=== PATIENT | male | born 1955 | race Caucasian/White ===

== ENCOUNTER → 2022-01-24 08:24 | Outpatient (BNVA) | payer MEDICARE, MEDICAID, SELFPAY | PROVIDERS: PCP Internal Medicine Geriatric Medicine; Referring Provider Internal Medicine Geriatric Medicine; Visit Provider Internal Medicine | DX: R07.89 Other chest pain (principal); I10 Essential (primary) hypertension; I51.7 Cardiomegaly; E78.00 Pure hypercholesterolemia, unspecified | CPT/HCPCS: 93005; 99202 ==

== ENCOUNTER → 2022-02-21 08:04 | Outpatient (REF) | payer MEDICARE, SELFPAY ==
--- NOTE | 2022-02-21 08:09 | CA_ITS ---
Acquisition Time: 2022-02-21 10:31:16 Total Exercise Time: 00:05:01 Test Indications: CP Medications: SEE CHART Protocol: ROMARIO Max HR: 134 BPM 85% of Pred: 156 BPM Max BP: 220/118 mmHG Max Work Load: 7.0 METS Exercise stress test with exercise 5 min 1 sec of Romario protocol, achieving 85% MPHR, without anginal symptoms, with isolated PACs and PVCs, with hypertensive response to exercise with max BP 220/118, with nondiagnostic EKG for ischemia due to baseline ST/ T wave abniormalities. In recovery BP gradual came down to 148/ 94, asymptomatic . He took his Amlodipine this am. Test reviewed with Dr Becerra Referred By: Jaskaran Mitchell Overread By: HAMZAH BERNABE
--- NOTE | 2022-02-21 08:09 | CA_ITS ---
Transthoracic Echocardiogram Patient (Last, First, Middle): Angel Villela, Gender: Male Date of : 1955 Age: 66 Procedure Date: 02/21/2022 Procedure Type: Transthoracic Echocardiogram Location: OP Height: 187.96 cm Weight: 78.02 kg BSA: 2.04 m2 Heart Rate: bpm BP: 180 / 90 mmHg Superintendent Division: TO Referring MD: Jaskaran Mitchell MD Clinical Research Technician: Ryley Becerra MD Symptoms: I51.7 - Cardiomegaly Study Quality: Fair ECG Rhythm: Sinus Conclusions: - 1. Mildly dilated left ventricle with [id number] LV systolic dysfunction with LVEF of 40-45% with impaired relaxation filling pattern 2. Mildly dilated left atrium 3. Mild aortic regurgitation 4. Mildly dilated ascending aorta 3.9 cm 5. Normal RV systolic pressure 6. No pericardial effusion Findings Left Ventricle Mildly increased left ventricular cavity size. There is normal left ventricular wall thickness. The left ventricular systolic function is mild to moderately decreased. The visually estimated ejection fraction is between 40-45%. Spectral Doppler is indicative of an impaired relaxation filling pattern. E/E prime ratio is between 8 and 15 consistent with indeterminate filling pressures. Right Ventricle Normal right ventricular cavity size and systolic function. Atria The left atrium is mildly dilated. There is no evidence of interatrial shunt. The right atrium is normal in size. Aortic Valve There is mild thickening of the aortic valve. There is no aortic valve stenosis. There is mild aortic valve regurgitation. Mitral Valve There is mild anterior mitral leaflet thickening. There is trace mitral valve regurgitation. There is no mitral valve stenosis. Pulmonic Valve The pulmonic valve is likely normal. Tricuspid Valve Normal tricuspid valve structure. There is trace tricuspid valve regurgitation. The right ventricular systolic pressure is normal. The right ventricular systolic pressure is 20 mmHg. Normal right atrial pressure. There is no evidence of pulmonary hypertension. Great Vessels The pulmonary artery was not well visualized. There is mild dilatation of the ascending aorta measuring 3.90 cm. Venous The inferior vena cava is normal in size and collapses greater than 50% with inspiration. Pericardium/Pleural There is no evidence of pericardial effusion. Prior Study Comparison No prior study available for comparison. Measurements 2D Linear Measurements IVSd: 1.18 0.6-0.9/0.6-1.0 cm LVIDd: 5.98 3.9-5.3/4.2-5.9 cm LVIDd Index: 2.93 2.4-3.2/2.2-3.1 cm/m2 LVIDs: 4.60 2.0-3.6 cm LVPWd: 1.00 0.7-1.1 cm LA Diam: 3.80 2.7-3.8/3.0-4.0 cm LAIDs Index: 1.86 1.5-2.3 cm/m2 LV Mass: 342.67 67-162/88-224 g LV Mass Index: 167.98 43-95/49-115 g/m2 LVOT Diam: 2.00 3.0+(-)1.3 cm 2D Systolic Function EF 4C: 41.70 >55% EF 2C: 45.10 >55% EF BiP: 43.20 >55% Mitral Valve MV Pk E: 0.55 MV PK A: 0.65 MV Decel Time: 250.00 E/A: 0.80 E'Lateral: 3.81 E'Medial: 5.33 E/E' Med: 10.30 E/E' Lat: 14.40 PHT: 73.00 MVA PHT: 3.01 Decel [place]: 2.19 Aortic Valve AoV Pk Dell: 1.87 AoV Mn Dell: 1.26 AoV VTI: 0.39 AoV Pk Grad: 14.00 Aov Mn Grad: 7.00 THANH Cont.VTI: 1.52 LVOT LVOT Pk Dell: 0.77 LVOT Mn Dell: 0.55 LVOT VTI: 0.19 LVOT Pk Grad: 2.00 LVOT Mn Grad: 1.00 LVOT Diam: 2.00 LVOT Area: 3.14 Diastolic Function MV Pk E: 0.55 MV Pk A: 0.65 E/A: 0.80 E'Medial: 5.33 E/E' Med: 10.30 E' Laterial: 3.81 E/E' Lat: 14.40 Right Ventricle TAPSE (mm): 22.20 TVS' Dell: 9.90 Tricuspid Valve TR Pk Dell: 2.08 TR Pk Grad: 17.00 RA Press: 3.00 RVSP: 20.00 Great Vessels Aorta Sinus of Valsalva: 3.22 2.0-3.5 cm Ao Asc: 3.90 2.1-3.4 cm Updated in Other Vendor System with Status of Final Ryley Becerra MD electronically signed on 02/23/2022 1:05:14 PM with status of Final
== END ==
LOC: HO.CARD 08:04
PROVIDERS: PCP Internal Medicine Geriatric Medicine; Visit Provider Internal Medicine
DX: R07.2 Precordial pain (principal); I51.7 Cardiomegaly
CPT/HCPCS: 93017; 93306

== ENCOUNTER → 2022-04-11 13:25 | Outpatient (BNVA) | payer MEDICARE, MEDICAID, SELFPAY | PROVIDERS: PCP Internal Medicine Geriatric Medicine; Referring Provider Internal Medicine Geriatric Medicine; Visit Provider Nurse Practitioner Family | DX: R07.2 Precordial pain (principal); I10 Essential (primary) hypertension; I42.9 Cardiomyopathy, unspecified; I51.7 Cardiomegaly; Z79.899 Other long term (current) drug therapy | CPT/HCPCS: 99212 ==

== ENCOUNTER 2022-04-20 09:45 | Outpatient (REF) | payer MEDICARE, SELFPAY ==
[2022-04-20 11:10] LABS: Anion Gap 13 (12-20); Blood Urea Nitrogen 10 mg/dL (9-16); Calcium 9.4 mg/dL (8.4-10.2); Carbon Dioxide 24 mmol/L (22-29); Chloride 107 mmol/L (96-108); Estimated Glomerular Filt Rate > 60; Glucose Random 103 mg/dL (60-115); Potassium 4.1 mmol/L (3.3-5.1); Sodium 140 mmol/L (135-145)
== END 2022-04-20 09:46 | disposition home or self-care (01) ==
LOC: HO.LAB 09:45
PROVIDERS: PCP Internal Medicine Geriatric Medicine; Visit Provider Nurse Practitioner Family
DX: I42.9 Cardiomyopathy, unspecified (principal)
CPT/HCPCS: 36415; 80048

== ENCOUNTER → 2022-05-01 08:10 | Outpatient (REF) | payer MEDICARE, MEDICAID, SELFPAY ==
--- NOTE | ~2022-05-01 | NM_ITS ---
Exercise Myocardial perfusion study Indication: Cardiomyopathy to evaluate for myocardial ischemia Technique: The patient was brought in for an exercise perfusion study on 05/01/2022. Patient performed exercise as per Juan C protocol and was injected 30 mCi of sestamibi was given intravenously one target HR was achieved. Images were obtained using the SPECT gamma camera interlaced with the gating device. Images were obtained in supine position. Resting perfusion study was performed on 05/02/2022. Patient was administered 30 mCi of sestamibi intravenously at rest. Images were then obtained in supine position. Images obtained with and without CT attenuation. Total DLP 101 mGy-cm. Images were processed with the software and compared side to side in short axis, horizontal long axis and vertical long axis views. Findings: The stress perfusion study showed non attenuated images show moderate to severely reduced uptake in the inferior wall of the LV myocardium. Remainder of the LV myocardium shows normally perfused uptake. Attenuation corrected images was somewhat suboptimal due to poor. Wall in the subdiaphragmatic uptake with moderately reduced uptake in the inferior wall.. The gated study shows reduced LV systolic function with calculated LVEF of 31%. LV cavity is mildly to moderately in size. The gated study shows diffusely reduced wall thickening and contraction of all segments. There is no transient ischemic dilation. Resting study shows nontender images show moderately to severely reduced uptake in the inferior wall of the LV myocardium. Remainder of the LV myocardium normally perfused. Attenuation corrected images are suboptimal with subdiaphragmatic uptake sparing inferior wall uptake at the apex of the uptake.. Gating at rest reveals diffuse wall motion with ejection fraction at 34%. The findings are consistent with suboptimal stress perfusion study and inferior wall ischemia cannot be entirely ruled out. NM/NM cardiolite stress test Impression: 1. Possible inferior wall ischemia 2. Gated LVEF is 31% with stress and 34% with rest 3. Transient ischemic dilatation not present but LV cavity is dilated Stress EKG is nondiagnostic for ischemia
--- NOTE | 2022-05-01 08:18 | CA_ITS ---
Acquisition Time: 2022-05-01 08:31:21 Total Exercise Time: 00:05:31 Test Indications: CP, CARDIOMYOPATHY Medications: SEE CHART Protocol: ROMARIO Max HR: 134 BPM 85% of Pred: 156 BPM Max BP: 200/108 mmHG Max Work Load: 7.0 METS Exercise stress test with exercise 5 min 31 sec of Romario protocol, achieving 85% MPHR, with moderate sob, no chest discomfort, with frequent PACs, with hypertensive response to exercise with max BP 200/108, with nondiagnostic EKG for ischemia due to baseline ST/T abnormality. In recovery his breathing quickly improved and BP improved to 156/84. Nuclear images pending. Test reviewed with Dr Mitchell Referred By: Jaclyn Slater Overread By: JACLYN SLATER
== END ==
LOC: HO.CARD 08:10
PROVIDERS: PCP Internal Medicine Geriatric Medicine; Visit Provider Nurse Practitioner Family
DX: I42.9 Cardiomyopathy, unspecified (principal); I51.7 Cardiomegaly
CPT/HCPCS: 78452; 93017; A9500

== ENCOUNTER → 2022-05-08 14:43 | Outpatient (BNVA) | payer MEDICARE, MEDICAID, SELFPAY | PROVIDERS: PCP Internal Medicine Geriatric Medicine; Referring Provider Internal Medicine Geriatric Medicine; Visit Provider Nurse Practitioner Family | DX: R07.2 Precordial pain (principal); I10 Essential (primary) hypertension; I42.9 Cardiomyopathy, unspecified; I51.7 Cardiomegaly; Z79.899 Other long term (current) drug therapy | CPT/HCPCS: 99212 ==

== ENCOUNTER 2022-06-04 09:38 | Outpatient (REF) | payer MEDICARE, SELFPAY ==
[2022-06-04 10:59] LABS: Anion Gap 11 (12-20); Blood Urea Nitrogen 12 mg/dL (9-16); Calcium 9.4 mg/dL (8.4-10.2); Carbon Dioxide 26 mmol/L (22-29); Chloride 107 mmol/L (96-108); Estimated Glomerular Filt Rate > 60; Glucose Random 106 mg/dL (60-115); Potassium 4.2 mmol/L (3.3-5.1); Sodium 140 mmol/L (135-145)
== END 2022-06-04 09:39 | disposition home or self-care (01) ==
LOC: HO.LAB 09:38
PROVIDERS: PCP Internal Medicine Geriatric Medicine; Visit Provider Nurse Practitioner Family
DX: I42.9 Cardiomyopathy, unspecified (principal); R94.39 Abnormal result of other cardiovascular function study; R07.2 Precordial pain
CPT/HCPCS: 36415; 80048

== ENCOUNTER 2022-10-24 12:13 | Outpatient (AMB) | payer MEDICARE, MEDICAID, SELFPAY ==
--- NOTE | 2022-10-24 12:32 | MHC.OFFVIS ---
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 In the past, was seen regarding chest pain. Subsequently, underwent noninvasive workup including echocardiogram, stress test as well as coronary CTA. Overall, he states he is feeling great. No further chest pains or in fact any cardiac symptoms whatsoever. Blood pressure runs high today but he is in denial that this is a problem. Continues to state that he is feeling fine and blood pressure issues not a true issue. [facility] Medical History Anxiety Elevated PSA Essential hypertension High cholesterol Surgical History History of lung surgery Family History Brother Diabetes Social History Alcohol intake: current Alcohol intake frequency: a few times a week Alcohol type: beer Patient Tobacco Use Status: Never used Tobacco Substance Use Type: Marijuana Review of Systems Const Denies weakness ENT Denies dizziness Card Denies chest pain, Denies chest pain with activity, Denies syncope, Denies rapid heart rate, Denies pedal edema, Denies edema, Denies leg edema, Denies lightheadedness, Denies palpitations, Denies dyspnea, Denies dyspnea on exertion and Denies orthopnea Resp Denies cough, Denies dyspnea and Denies dyspnea on exertion GI Denies hematochezia and Denies change in stool character Musc Denies abnormal gait, Denies muscle cramps, Denies muscle weakness, Denies numbness, Denies radiating pain into limb and Denies tingling Neuro Denies abnormal gait, Denies dizziness, Denies syncope, Denies numbness, Denies tingling and Denies weakness Endo Denies palpitations Physical Exam Vital Signs: Last Vital Signs Pulse 63 10/24/22 12:35 BP 170/90 H 10/24/22 12:35 BMI result Body Mass Index 22.2 Const General: comfortable and no acute distress Orientation/consciousness: patient oriented x3 HEENT Other: Unremarkable Head: Yes normal to inspection Neck Neck: Yes normal visual inspection Chest Chest palpation & inspection: normal inspection of the chest Resp Auscultation: clear to auscultation bilaterally Cardio Palpation: normal PMI Heart sounds: S1 normal heart sound present, S2 normal heart sound present, no gallops, no murmurs and no rubs GI Palpation (GI): Soft to palpation Back/Spine/Pelvis Other: unremarkable Skin General skin exam: no rashes or lesions noted Neuro General: patient oriented x3 Extrem General: Yes normal to inspection Psych Mental Status: mental status grossly normal Assessment & Plan Assessment & Plan (1) Precordial chest pain: Code(s): R07.2 - Precordial pain Plan: No significant coronary disease on CTA. Could be related to episodes of high blood pressure. Any case, he has not had any further pain a while. (2) Essential hypertension: Code(s): I10 - Essential (primary) hypertension Plan: Blood pressure is high today as well as prior readings. However, he is not willing to accept that this is a problem. Continues to state that it is only because of coming to doctor's. However, he does not seem to check home blood pressures either to actually proved that it goes down. He was on medications in the past but taking absolutely nothing now. Spent a lot of time convincing him that he should take medicines and we can restart the amlodipine. New script is being sent. (3) Cardiomyopathy: Code(s): I42.9 - Cardiomyopathy, unspecified Plan: Echocardiogram with mildly increased size and LVEF is 40-45%. This could all be from hypertensive cardiomyopathy. Control blood pressure will certainly help as long as patient is willing to accepted. However, as above, he is still in denial. (4) Ascending aortic aneurysm: Code(s): I71.21 - Aneurysm of the ascending aorta, without rupture Plan: Ascending aortic size is 4.2 cm on the CTA. Will need to be followed periodically. Blood pressure management as above. Plan Tried to educate patient about high blood pressure as well as importance of treatment and consequences from lack of control. Medications: New amlodipine 10 mg PO DAILY 90 tabs 3RF Coding Level of Care Code Est Pt Level 4 (06810) Diagnoses Precordial chest pain R07.2 Essential hypertension I10 Cardiomyopathy I42.9 Ascending aortic aneurysm I71.21
[2022-10-24 12:35] VITALS: BP 170/90; PULSE 63; BMI 22.2
== END 2022-10-24 12:47 | disposition home or self-care (01) ==
PROVIDERS: PCP Internal Medicine Geriatric Medicine; Referring Provider Internal Medicine Geriatric Medicine; Visit Provider Internal Medicine
DX: R07.2 Precordial pain (principal); I10 Essential (primary) hypertension; I42.9 Cardiomyopathy, unspecified; I71.21 Aneurysm of the ascending aorta, without rupture
CPT/HCPCS: 99214

== ENCOUNTER → 2022-10-24 12:13 | Outpatient (BNVA) | payer MEDICARE, SELFPAY | PROVIDERS: PCP Internal Medicine Geriatric Medicine; Referring Provider Internal Medicine Geriatric Medicine; Visit Provider Internal Medicine | DX: R07.2 Precordial pain (principal); I10 Essential (primary) hypertension; I42.9 Cardiomyopathy, unspecified; I71.21 Aneurysm of the ascending aorta, without rupture; E78.00 Pure hypercholesterolemia, unspecified | CPT/HCPCS: 99212 ==

== ENCOUNTER 2023-01-15 10:06 | Outpatient (REF) | payer MEDICARE, MEDICAID, SELFPAY ==
[2023-01-15 11:19] LABS: MANUAL DIFF FLAG NO
[2023-01-15 11:26] LABS: Basophils Percent Auto 0.9 % (0-2); Eosinophils Absolute Auto 0.1 X10*3/uL (0.0-0.4); Eosinophils Percent Auto 2.4 % (0-4); Hematocrit 53.6 % (42.0-52.0); Hemoglobin 17.8 g/dl (14.0-18.0); Imm Gran Abs Auto 0.01 X10*3/uL (0.00-0.03); Imm Gran Pct Auto 0.3 % (0.0-0.4); Lymphocytes Percent Auto 30.7 % (20-40); Mean Corpuscular HGB Conc 33.2 g/dl (31.0-36.0); Mean Corpuscular Volume 87.3 fL (80.0-98.0); Mean Platelet Volume 11.9 fL (9.4-12.4); Monocytes Absolute Auto 0.3 X10*3/uL (0.1-1.2); Monocytes Percent Auto 9.1 % (2-11); Neutrophils Absolute Auto 1.9 x10*3/uL (2.0-8.3); Neutrophils Percent Auto 56.6 % (45-73); Platelet Count 231 X10*3/uL (160-400); Red Blood Count 6.14 X10*6/uL (4.60-5.80); Red Cell Distribution Width 12.9 % (11.0-16.0); White Blood Count 3.4 X10*3/uL (4.8-10.8)
[2023-01-15 11:38] LABS: Alanine Aminotransferase 29 U/L (0-40); Albumin Level 4.4 g/dL (3.5-5.0); Alkaline Phosphatase 74 U/L (39-117); Anion Gap 12 (12-20); Aspartate Amino Transferase 32 U/L (5-37); Bilirubin Total 0.5 mg/dL (0.0-1.0); Blood Urea Nitrogen 15 mg/dL (9-16); Carbon Dioxide 24 mmol/L (22-29); Chloride 106 mmol/L (96-108); Cholesterol 253 mg/dL (<200); Estimated Glomerular Filt Rate > 60; Glucose Random 114 mg/dL (60-115); HDL Cholesterol 66 mg/dL (>40); LDL Cholesterol Calculated 159 mg/dL (<100); Potassium 3.7 mmol/L (3.3-5.1); Sodium 138 mmol/L (135-145); Total Protein 8.2 g/dL (6.5-8.0); Triglycerides 144 mg/dL (<150)
[2023-01-15 11:51] LABS: Prostate Specific Antigen 6.93 ng/mL (<0.05-4.0)
== END 2023-01-15 10:07 | disposition home or self-care (01) ==
LOC: HO.HHCL 10:06
PROVIDERS: Visit Provider Internal Medicine Geriatric Medicine
DX: I10 Essential (primary) hypertension (principal); R97.20 Elevated prostate specific antigen [PSA]; E78.00 Pure hypercholesterolemia, unspecified; M21.611 Bunion of right foot; Z28.20 Immunization not carried out because of patient decision for unspecified reason; Z12.5 Encounter for screening for malignant neoplasm of prostate
CPT/HCPCS: 36415; 80053; 80061; 84153; 85025

== ENCOUNTER 2023-03-22 10:10 | Outpatient (AMB) | payer MEDICARE, MEDICAID, SELFPAY ==
--- NOTE | 2023-03-22 10:13 | A.OFFVIS_ITS ---
Intake Intake Visit Reasons: New PT Elevated PSA 6.93 ng/dL 01/15/2023 Intake Note: NEW Patient presents today to established treatment for Elevated PSA: Prostate Specific Ag 6.93 ng/dL 01/15/2023: Meds- None Allergies to Antibiotic- No Known Allergies Blood Thinner- None Post Void Residual: 27 mL Pension Consultant Required: No Accompanied by: Self / Same As Patient Allergies No Known Allergies [No Known Allergies*] Allergy (Verified 04/29/23 13:18) Medication List - Last Reconciled 03/22/23 by Juan Carlos Mcgregor MD amlodipine 10 mg PO DAILY carvedilol 3.125 mg PO BID HPI HPI Comments History of Present Illness Details Angel who is here for evaluation for elevated PSA. The patient denies family history of prostate cancer. Denies history of nicotine use. I have discussed that elevated PSA may indicate changes in the prostate including benign enlargement, cancer and an inflammatory condition. I have discussed doing a biopsy has risks and that management in early detection of prostate cancer may include active surveillance. Evaluation: Urinalysis-leukocytes negative, blood negative; Post Void Residual: 27 mL Prostate Exam: Patient declined exam today. Plan: Discussed repeat PSA. If remains elevated discussed plan for prostate biopsy. Ultrasound retroperitoneum, evaluate size of prostate by ultrasound [facility] Medical History Anxiety High cholesterol Elevated PSA Essential hypertension Surgical History History of lung surgery Family History Brother Diabetes Social History Alcohol intake: current Alcohol intake frequency: a few times a week Alcohol type: beer Patient Tobacco Use Status: Never used Tobacco Substance Use Type: Marijuana Review of Systems Const All systems reviewed & are unremarkable except as noted in HPI and below Reports no additional complaints Eyes Reports no additional complaints ENT Reports no additional complaints Card Denies dyspnea Resp Denies cough and Denies dyspnea GI Reports no additional complaints Musc Reports no additional complaints Skin/Breast Denies rash and Denies unusual bruising Neuro Reports no additional complaints Psych Reports no additional complaints Endo Reports no additional complaints Jerel/Lymph Reports no additional complaints Aller/Immun Reports no additional complaints Physical Exam Const General: healthy appearing, no acute distress and well developed Orientation/consciousness: patient oriented x3 HEENT Head: Yes normocephalic and Yes atraumatic Eyes Conjunctivae: conjunctivae normal Neck Neck: Yes normal visual inspection Chest Chest palpation & inspection: normal inspection of the chest Resp Effort & Inspection: normal respiratory effort Cardio Rate: regular rate GI Inspection: Yes normal to inspection Palpation (GI): Soft to palpation Other: Prostate Exam: Patient declined exam today. Skin General skin exam: no rashes or lesions noted Neuro General: patient oriented x3 Extrem General: No pedal edema Psych Appearance: grossly normal Affect: normal affect Office Procedures Post Void Residual Post Residual Void Post Void Residual (PVR): 27 [id number] Void Residual by ultrasound Results AMB Urinalysis, Automated UA Leukoctes 0 Demario/uL Last Edit by TERRY Keen on 03/22/23 10:37 UA Nitrite Negative Last Edit by TERRY Keen on 03/22/23 10:37 UA Urobilinogen 0.2 mg/dL Last Edit by TERRY Keen on 03/22/23 10:3 7 UA Protein 0 mg/dL Last Edit by TERRY Keen on 03/22/23 10:37 UA pH 6.0 Last Edit by TERRY Keen on 03/22/23 10:37 UA Blood 0 Steve/uL Last Edit by TERRY Keen on 03/22/23 10:37 UA Specific [place] 1.005 Last Edit by TERRY Keen on 03/22/23 10: 37 UA Ketone Negative Last Edit by TERRY Keen on 03/22/23 10:37 UA Bilirubin 0 mg/dL Last Edit by TERRY Keen on 03/22/23 10:37 UA Glucose 0 mg/dL Last Edit by TERRY Keen on 03/22/23 10:37 Results Reviewed Results Reviewed: Laboratory Last Values Urine pH (Auto) 6.0 03/22/23 10:36 Specific [place] (Auto) 1.005 03/22/23 10:36 Urine Protein (Auto) 0 mg/dL 03/22/23 10:36 Glucose (UA)(Auto) 0 mg/dL 03/22/23 10:36 Urine Ketones (Auto) Negative 03/22/23 10:36 Urine Blood (Auto) 0 Steve/uL 03/22/23 10:36 Urine Nitrite (Auto) Negative 03/22/23 10:36 Urine Bilirubin (Auto) 0 mg/dL 03/22/23 10:36 Urine Urobilinogen (Auto) 0.2 mg/dL 03/22/23 10:36 Leukocyte Esterase (Auto) 0 Demario/uL 03/22/23 10:36 Assessment & Plan Assessment & Plan (1) BPH with elevated PSA: Code(s): N40.0 - Benign prostatic hyperplasia without lower urinary tract symptoms; R97.20 - Elevated prostate specific antigen [PSA] (2) Elevated PSA: Code(s): R97.20 - Elevated prostate specific antigen [PSA] Plan Ultrasound retroperitoneal Repeat PSA Orders: Orders AMB Post Void Residual by ultrasound 03/22/23 N39.8 - Other specified disorders of urinary system US retroperitoneal comp 03/22/23 N40.0 - Benign prostatic hyperplasia without lower urinary tract symptoms, R97.20 - Elevated prostate specific antigen [PSA] AMB Urinalysis Automated 03/22/23 Z13.9 - Encounter for screening, unspecified PSA,Total (Free>4and<10) 03/26/23 R97.20 - Elevated prostate specific antigen [PSA] Patient Instructions: The patient had an opportunity to ask questions regarding treatment plan. All questions were answered. Laboratory studies and physical exam results were discussed and reviewed in detail. No major barriers to understanding were identified. The patient expressed understanding and agreement with the above treatment plan. The patient is aware they should contact our office by phone for worsening of their current condition or the appearance of new symptoms. Compliance is encouraged with any medications and followup testing that is ordered. It is a privilege to be allowed the opportunity to participate in the urologic care of your patient. If you have any questions or concerns regarding treatment for the above conditions please do not hesitate to contact me. The office telephone contact is [phone]. This note is constructed in part using voice recognition software. While every effort has been made to ensure accuracy manager manufacturing errors may have been included. Yours sincerely, Juan Carlos Mcgregor MD Coding Level of Care Code New Pt Level 4 (36536) Diagnoses BPH with elevated PSA N40.0; R97.20 Elevated PSA R97.20 CPT Codes Post Residual Void - PVR CPT Code: 96495-[id number] Void Residual by ultrasound ([id number])
== END 2023-03-22 11:02 | disposition home or self-care (01) ==
PROVIDERS: PCP Internal Medicine Geriatric Medicine; Visit Provider Urology
DX: N40.0 Benign prostatic hyperplasia without lower urinary tract symptoms (principal); R97.20 Elevated prostate specific antigen [PSA]
CPT/HCPCS: 99204

== ENCOUNTER → 2023-03-22 10:10 | Outpatient (BNVA) | payer MEDICARE, MEDICAID, SELFPAY | PROVIDERS: PCP Internal Medicine Geriatric Medicine; Visit Provider Urology | DX: R97.20 Elevated prostate specific antigen [PSA] (principal); N40.0 Benign prostatic hyperplasia without lower urinary tract symptoms | CPT/HCPCS: 51798; 81003; 99202 ==

== ENCOUNTER 2023-03-26 08:36 | Outpatient (REF) | payer MEDICARE, SELFPAY ==
[2023-03-26 09:52] LABS: PSA,Total (Free>4and<10) 6.03 ng/mL (0.00-4.00)
[2023-03-28 11:23] LABS: Percent Free Prostate Spec Ag 16 % (calc) (>25); Prostate Specific Ag Total 6.1 ng/mL (< OR = 4.0)
== END 2023-03-26 08:37 | disposition home or self-care (01) ==
LOC: HO.LAB 08:36
PROVIDERS: PCP Internal Medicine Geriatric Medicine; Visit Provider Urology
DX: R97.20 Elevated prostate specific antigen [PSA] (principal); Z12.5 Encounter for screening for malignant neoplasm of prostate
CPT/HCPCS: 36415; 84153; 84154

== ENCOUNTER 2023-04-29 13:05 | Outpatient (AMB) | payer MEDICARE, SELFPAY ==
[2023-04-29 13:14] VITALS: BP 190/76; PULSE 77; BMI 21.7
--- NOTE | 2023-04-29 13:14 | MHC.OFFVIS ---
Intake Vital Signs 04/29/23 13:14 Height 6 ft 2 in Weight 169 lb 5.04 oz BMI 21.7 BP 190/76 H Blood Pressure Location Lt brachial Position Sitting Pulse 77 Pulse Source Monitor Intake Visit Reasons: r/s 6 mos f/u Etl [employer] Developer Required: No Allergies No Known Allergies [No Known Allergies*] Allergy (Verified 04/29/23 13:18) HPI r/s 6 mos f/u HPI Details Angel is a 67-year-old male with past medical history of hypertension, hyperlipidemia, cardiomyopathy, LVH, ascending aorta aneurysm, who presents for follow-up. Today he reports that he has not been taking his medications in over a week. He says he does forget and has been under a lot of stress. He describes himself as very busy and active throughout each day. He says he feels good except he is very hot all the time. He sweats very easily which is not a new finding for him. No chest discomfort at rest or with activity. No heart palpitations, lightheadedness, presyncope, syncope, falls. No shortness of breath, PND, orthopnea or edema. No headaches or visual or mobility disturbances reported. [facility] Medical History Anxiety High cholesterol Elevated PSA Essential hypertension Surgical History History of lung surgery Family History Brother Diabetes Social History Alcohol intake: current Alcohol intake frequency: a few times a week Alcohol type: beer Patient Tobacco Use Status: Never used Tobacco Substance Use Type: Marijuana Review of Systems Const Details: gets hot and sweaty very easily All systems reviewed & are unremarkable except as noted in HPI and below ENT Denies dizziness Card Denies chest pain, Denies chest pain at rest, Denies chest pain with activity, Denies rapid heart rate, Denies pedal edema, Denies edema, Denies leg edema, Denies lightheadedness, Denies palpitations, Denies dyspnea, Denies dyspnea on exertion and Denies orthopnea Resp Denies cough, Denies dyspnea and Denies dyspnea on exertion GI Denies hematochezia and Denies change in stool character Musc Denies abnormal gait, Denies limited range of motion, Denies muscle cramps, Denies muscle weakness, Denies numbness, Denies radiating pain into limb, Denies stiffness and Denies tingling Neuro Denies abnormal gait, Denies dizziness, Denies numbness and Denies tingling Endo Denies palpitations Physical Exam Vital Signs: Last Vital Signs Pulse 77 04/29/23 13:14 BP 190/76 H 04/29/23 13:14 BMI result Body Mass Index 21.7 Const General: cooperative, healthy appearing, comfortable and no acute distress Orientation/consciousness: patient oriented x3 Neck Neck: Yes normal visual inspection and Yes no JVD Resp Effort & Inspection: normal respiratory effort Auscultation: clear to auscultation bilaterally, no crackles, no rales, no rhonchi and no wheezes Cardio Jugular venous distension: no JVD Rate: regular rate Rhythm: regular rhythm Heart sounds: S1 normal heart sound present, S2 normal heart sound present, no murmurs and no rubs Neuro General: patient oriented x3 Extrem General: Yes normal to inspection, No no pedal edema and No calf tenderness Psych Appearance: grossly normal Mental Status: mental status grossly normal Speech and movement: Normal speech and movement present Office Procedures EKG Details: Today, read by me, normal sinus rhythm, right atrial enlargement, left ventricular hypertrophy with QRS widening and repolarization abnormality, can not exclude prior septal infarct, rate 77, QTC 430 milliseconds [id number], Complete Assessment & Plan Assessment & Plan (1) Uncontrolled hypertension: Code(s): I10 - Essential (primary) hypertension Plan: Blood pressure elevated this visit, initially 190/76, recheck done by me, 180/88. He says he has not taking his medications, amlodipine or carvedilol in over a week. He says he is busy and forgets. He also reports high stress levels. Spent time reviewing the need for strict medication compliance with him as he has at risk for heart attack or stroke with uncontrolled hypertension. EKG done today shows normal sinus rhythm with right atrial enlargement, LVH with QRS widening and repolarization abnormality, rate 77. Last echocardiogram done 02/21/2022 showed mildly dilated left ventricle with EF 40-45%, impaired relaxation, ascending aorta 3.9 cm. Reviewed these findings with patient in detail and described the affects of his uncontrolled hypertension on his heart. He says he understands. Will send refills for his medications to ensure that he has each of them with a 90 day supply. Will arrange for an office blood pressure check in 2 weeks. If blood pressure still elevated at that time carvedilol dose will be increased. Office visit will be 3 months, sooner if needed. (2) Left ventricular hypertrophy: Code(s): I51.7 - Cardiomegaly Plan: As above (3) Ascending aortic aneurysm: Code(s): I71.21 - Aneurysm of the ascending aorta, without rupture Plan: 3.9 cm on last echocardiogram. CTA of the coronaries on 06/08/2022 did show mildly dilated ascending aorta 4.2 cm. Will continue to follow. Working on blood pressure control. (4) Abnormal nuclear stress test: Code(s): R94.39 - Abnormal result of other cardiovascular function study Plan: Nuclear stress test done 05/02/2022 showed possible inferior wall ischemia. A CTA of the coronary arteries was done on 06/08/2022 showing no significant coronary artery disease. (5) Noncompliance with medications: Code(s): Z91.148 - Patient's other noncompliance with medication regimen for other reason Plan: Time spent on chart review, documentation, interview and assessment Medications: Changed From carvedilol must administer with a meal/food 3.125 mg PO BID To carvedilol must administer with a meal/food 3.125 mg PO BID 90 days 180 tabs 3RF Refilled amlodipine 10 mg PO DAILY 90 tabs 3RF Coding Level of Care Code Est Pt Level 4 (04263) Diagnoses Uncontrolled hypertension I10 Left ventricular hypertrophy I51.7 Ascending aortic aneurysm I71.21 Abnormal nuclear stress test R94.39 Noncompliance with medications Z91.148 CPT Codes EKG - CPT: 18701-[id number], Complete ([id number]) Time Spent (min) 28
== END 2023-04-29 13:51 | disposition home or self-care (01) ==
PROVIDERS: PCP Internal Medicine Geriatric Medicine; Visit Provider Nurse Practitioner Family
DX: I10 Essential (primary) hypertension (principal); I51.7 Cardiomegaly; I71.21 Aneurysm of the ascending aorta, without rupture; R94.39 Abnormal result of other cardiovascular function study; Z91.148 Patient's other noncompliance with medication regimen for other reason
CPT/HCPCS: 93010; 99214

== ENCOUNTER → 2023-04-29 13:05 | Outpatient (BNVA) | payer MEDICARE, SELFPAY | PROVIDERS: PCP Internal Medicine Geriatric Medicine; Visit Provider Nurse Practitioner Family | DX: I51.7 Cardiomegaly (principal); I10 Essential (primary) hypertension; I71.21 Aneurysm of the ascending aorta, without rupture; Z91.148 Patient's other noncompliance with medication regimen for other reason; R94.39 Abnormal result of other cardiovascular function study | CPT/HCPCS: 93005; 99212 ==

== ENCOUNTER 2023-05-03 13:11 | Outpatient (REF) | payer MEDICARE, SELFPAY ==
--- NOTE | ~2023-05-03 | US_ITS ---
EXAMINATION: US RETROPERITONEAL COMPLETE (RENAL) CLINICAL INFORMATION: Benign prostatic hyperplasia without lower urinary tract symptoms. COMPARISON: None available. TECHNIQUE: Real-time imaging of the kidneys and bladder. FINDINGS: RIGHT KIDNEY: 10.8 x 4.2 x 4.9 cm (SAG x AP x TRV). The kidney is normal in size, contour, and echogenicity. Renal cortical thickness is normal. No calculi or focal parenchymal lesions. No hydronephrosis. LEFT KIDNEY: 11.7 x 5.2 x 5.0 cm (SAG x AP x TRV). The kidney is normal in size, contour, and echogenicity. Renal cortical thickness is normal. No calculi or focal parenchymal lesions. No hydronephrosis. BLADDER: Well distended. Bilateral ureteral jets are demonstrated. Prevoid bladder volume is 246.3 mL. Postvoid bladder volume is 85.0 mL. Thickened trabeculated bladder wall measuring 7 mm. Left ureteral jet is prominent. PROSTATE: Prostate is heterogeneous and enlarged with volume of 121 mL. Prostate extrinsically compresses the urinary bladder US/US retroperitoneal comp IMPRESSION: Trabeculated, thick-walled urinary bladder in association with enlarged heterogeneous prostate. Correlate with PSA.
== END 2023-05-03 13:12 | disposition home or self-care (01) ==
LOC: HO.US 13:11
PROVIDERS: PCP Internal Medicine Geriatric Medicine; Visit Provider Urology
DX: N40.0 Benign prostatic hyperplasia without lower urinary tract symptoms (principal); R97.20 Elevated prostate specific antigen [PSA]
CPT/HCPCS: 76770

== ENCOUNTER 2023-06-14 13:09 | Outpatient (REF) | payer MEDICARE, SELFPAY ==
[2023-06-14 17:23] LABS: PSA,Total (Free>4and<10) 6.61 ng/mL (0.00-4.00)
[2023-06-17 17:23] LABS: Free Prostate Spec Ag 1.2 ng/mL; Percent Free Prostate Spec Ag 20 % (calc) (>25); Prostate Specific Ag Total 5.9 ng/mL (< OR = 4.0)
== END 2023-06-14 13:10 | disposition home or self-care (01) ==
LOC: HO.LAB 13:09
PROVIDERS: PCP Internal Medicine Geriatric Medicine; Visit Provider Urology
DX: R97.20 Elevated prostate specific antigen [PSA] (principal); Z12.5 Encounter for screening for malignant neoplasm of prostate
CPT/HCPCS: 36415; 84153; 84154

== ENCOUNTER 2023-06-21 12:42 | Outpatient (AMB) | payer MEDICARE, MEDICAID, SELFPAY ==
--- NOTE | 2023-06-21 13:07 | MHC.OFFVIS ---
Intake Visit Reasons: 7w/US/PSA Intake Note: Patient presents today for a follow-up on Elevated PSA & US Results: Meds- None Allergies to Antibiotic- No Known Allergies Blood Thinner- None PSA RESULTS- 6.63 ng/dL 06/14/2023: Core Dropper Required: No Accompanied by: Self / Same As Patient Allergies No Known Allergies [No Known Allergies*] Allergy (Verified 04/29/23 13:18) Medication List - Last Reconciled 06/21/23 by Juan Carlos Mcgregor MD amlodipine 10 mg PO DAILY carvedilol 3.125 mg PO BID 90 days dutasteride 0.5 mg PO DAILY HPI Comments Details: 06/21/23--Angel is a 68-year-old male who is being evaluated due to elevated PSA. He was initially evaluated on 03/22/2023 for elevated PSA, of 6.93 on 01/15/2023. He does have some urinary symptoms of hesitancy. He is here in follow-up with repeat PSA and renal ultrasound. Repeat PSA, 06/14/2023 is 6.63. Renal/bladder ultrasound-05/03/23- kidneys WNL-heterogeneous prostate, estimated prostate volume 112 mL. Bladder wall thickening, acceptable PVR. The patient declines prostate biopsy. Will start dutesteride and repeat PSA in 4 months, consider office cystoscopy. Review of chart: 03/22/23--Angel who is here for evaluation for elevated PSA. The patient denies family history of prostate cancer. Denies history of nicotine use. I have discussed that elevated PSA may indicate changes in the prostate including benign enlargement, cancer and an inflammatory condition. I have discussed doing a biopsy has risks and that management in early detection of prostate cancer may include active surveillance. Evaluation: Urinalysis-leukocytes negative, blood negative; Post Void Residual: 27 mL Prostate Exam: Patient declined exam today. Plan: Discussed repeat PSA. If remains elevated discussed plan for prostate biopsy. Ultrasound retroperitoneum, evaluate size of prostate by ultrasound Labs: 01/15/23--PSA---6.93 [facility] Medical History Anxiety High cholesterol Elevated PSA Essential hypertension Surgical History History of lung surgery Family History Brother Diabetes Social History Alcohol intake: current Alcohol intake frequency: a few times a week Alcohol type: beer Patient Tobacco Use Status: Never used Tobacco Substance Use Type: Marijuana Review of Systems Const All systems reviewed & are unremarkable except as noted in HPI and below Reports no additional complaints Eyes Reports no additional complaints ENT Reports no additional complaints Card Reports no additional complaints Resp Reports no additional complaints GI Reports no additional complaints Reports as per HPI Musc Reports no additional complaints Skin/Breast Reports system reviewed and no additional complaints, except as documented Neuro Reports no additional complaints Psych Reports no additional complaints Endo Reports no additional complaints Jerel/Lymph Reports no additional complaints Aller/Immun Reports no additional complaints Results AMB Urinalysis, Automated UA Leukoctes 0 Demario/uL Last Edit by TERRY Keen on 06/21/23 13:15 UA Nitrite Negative Last Edit by Simin Edwards Ryann on 06/21/23 13:15 UA Urobilinogen 0.2 mg/dL Last Edit by Simin Edwards [facility] on 06/21/23 13:15 UA Protein 15 mg/dL Last Edit by Simin Edwards Ryann on 06/21/23 13:15 UA pH 6.0 Last Edit by Simin Edwards [facility] on 06/21/23 13:15 UA Blood 0 Steve/uL Last Edit by Simin Edwards Ryann on 06/21/23 13:15 UA Specific [place] 1.020 Last Edit by Simin Edwards [facility] on 06/21/23 13:15 UA Ketone Negative Last Edit by Simin Edwards Ryann on 06/21/23 13:15 UA Bilirubin 0 mg/dL Last Edit by Simin Edwards [facility] on 06/21/23 13:15 UA Glucose 0 mg/dL Last Edit by Simin Edwards [facility] on 06/21/23 13:15 Results Reviewed Results Reviewed: Laboratory Last Values Urine pH (Auto) 6.0 06/21/23 13:12 Specific [place] (Auto) 1.020 06/21/23 13:12 Urine Protein (Auto) 15 mg/dL 06/21/23 13:12 Glucose (UA)(Auto) 0 mg/dL 06/21/23 13:12 Urine Ketones (Auto) Negative 06/21/23 13:12 Urine Blood (Auto) 0 Steve/uL 06/21/23 13:12 Urine Nitrite (Auto) Negative 06/21/23 13:12 Urine Bilirubin (Auto) 0 mg/dL 06/21/23 13:12 Urine Urobilinogen (Auto) 0.2 mg/dL 06/21/23 13:12 Leukocyte Esterase (Auto) 0 Demario/uL 06/21/23 13:12 Date of Service: 05/03/23 EXAMINATION: US RETROPERITONEAL COMPLETE (RENAL) CLINICAL INFORMATION: Benign prostatic hyperplasia without lower urinary tract symptoms. COMPARISON: None available. TECHNIQUE: Real-time imaging of the kidneys and bladder. FINDINGS: RIGHT KIDNEY: 10.8 x 4.2 x 4.9 cm (SAG x AP x TRV). The kidney is normal in size, contour, and echogenicity. Renal cortical thickness is normal. No calculi or focal parenchymal lesions. No hydronephrosis. LEFT KIDNEY: 11.7 x 5.2 x 5.0 cm (SAG x AP x TRV). The kidney is normal in size, contour, and echogenicity. Renal cortical thickness is normal. No calculi or focal parenchymal lesions. No hydronephrosis. BLADDER: Well distended. Bilateral ureteral jets are demonstrated. Prevoid bladder volume is 246.3 mL. Postvoid bladder volume is 85.0 mL. Thickened trabeculated bladder wall measuring 7 mm. Left ureteral jet is prominent. PROSTATE: Prostate is heterogeneous and enlarged with volume of 121 mL. Prostate extrinsically compresses the urinary bladder IMPRESSION: Trabeculated, thick-walled urinary bladder in association with enlarged heterogeneous prostate. Correlate with PSA. Assessment & Plan Assessment & Plan (1) BPH with elevated PSA: Code(s): N40.0 - Benign prostatic hyperplasia without lower urinary tract symptoms; R97.20 - Elevated prostate specific antigen [PSA] Category: Medical (2) Elevated PSA: Code(s): R97.20 - Elevated prostate specific antigen [PSA] Category: Medical Plan Will start dutesteride and repeat PSA in 4 months Orders: Orders AMB Urinalysis Automated 06/21/23 Z13.9 - Encounter for screening, unspecified Medications: New dutasteride 0.5 mg PO DAILY 90 caps 3RF Patient Instructions: The patient had an opportunity to ask questions regarding treatment plan. The patient expressed understanding and agreement with the above treatment plan. The patient is aware they should contact our office by phone for worsening of their current condition or the appearance of new symptoms. Compliance is encouraged with any medications and followup testing that is ordered. It is a privilege to be allowed the opportunity to participate in the urologic care of your patient. If you have any questions or concerns regarding treatment for the above conditions please do not hesitate to contact me. The office telephone contact is [phone]. This note is constructed in part using voice recognition software. While every effort has been made to ensure accuracy commercial subcontractor errors may have been included. Yours sincerely, Juan Carlos Mcgregor MD Coding Level of Care Code Est Pt Level 4 (26404) Diagnoses BPH with elevated PSA N40.0; R97.20 Elevated PSA R97.20
== END 2023-06-21 14:00 | disposition home or self-care (01) ==
PROVIDERS: PCP Internal Medicine Geriatric Medicine; Visit Provider Urology
DX: N40.0 Benign prostatic hyperplasia without lower urinary tract symptoms (principal); R97.20 Elevated prostate specific antigen [PSA]
CPT/HCPCS: 99214

== ENCOUNTER → 2023-06-21 12:42 | Outpatient (BNVA) | payer MEDICARE, MEDICAID, SELFPAY | PROVIDERS: PCP Internal Medicine Geriatric Medicine; Visit Provider Urology | DX: R97.20 Elevated prostate specific antigen [PSA] (principal); N40.0 Benign prostatic hyperplasia without lower urinary tract symptoms | CPT/HCPCS: 81003; 99212 ==

== ENCOUNTER 2023-09-27 12:40 | Outpatient (AMB) | payer MEDICARE, MEDICAID, SELFPAY ==
--- NOTE | 2023-09-27 12:56 | A.OFFVIS_ITS ---
Vital Signs 09/27/23 12:57 Height 6 ft 2 in Weight 160 lb 14.999 oz BMI 20.7 BP 140/78 H Blood Pressure Location Lt brachial Position Sitting Pulse 78 Pulse Source Pulse Oximeter Intake Visit Reasons: RS month f/u Allergies No Known Allergies [No Known Allergies*] Allergy (Verified 04/29/23 13:18) Medication List - Last Reconciled 09/27/23 by Jaclyn Slater NP-C amlodipine 10 mg PO DAILY carvedilol 3.125 mg PO BID 90 days dutasteride 0.5 mg PO DAILY HPI HPI RS month f/u: Details: Angel is a 68-year-old male with past medical history of hypertension, hyperlipidemia, cardiomyopathy, LVH, ascending aorta aneurysm, who presents for follow-up. Today he reports he checks his blood pressure routinely at home. He finds that it has been elevated much of the time with systolic greater than 140. He takes his amlodipine and carvedilol. He does not like the way the carvedilol makes him feel. He believes that it is causing a strong pounding heart which he does not like. He says he feels good except he is very hot all the time. He sweats very easily in the hot weather which is not a new finding for him. No chest discomfort at rest or with activity. No lightheadedness, presyncope, syncope, falls. No shortness of breath, PND, orthopnea or edema. No headaches or visual or mobility disturbances reported. He says he is taking his meds as directed. [facility] Medical History Anxiety High cholesterol Elevated PSA Essential hypertension Surgical History History of lung surgery Family History Brother Diabetes Social History Alcohol intake: current Alcohol intake frequency: a few times a week Alcohol type: beer Patient Tobacco Use Status: Never used Tobacco Substance Use Type: Marijuana Review of Systems Const All systems reviewed & are unremarkable except as noted in HPI and below Denies weakness ENT Denies dizziness Card Details: palpitation Denies chest pain, Denies chest pain with activity, Denies syncope, Denies rapid heart rate, Denies pedal edema, Denies edema, Denies leg edema, Denies lightheadedness, Denies palpitations, Denies dyspnea, Denies dyspnea on exertion and Denies orthopnea Resp Denies cough, Denies dyspnea and Denies dyspnea on exertion GI Denies hematochezia and Denies change in stool character Musc Denies abnormal gait, Denies muscle cramps, Denies muscle weakness, Denies numbness, Denies radiating pain into limb and Denies tingling Neuro Denies abnormal gait, Denies dizziness, Denies syncope, Denies numbness, Denies tingling and Denies weakness Endo Denies palpitations Physical Exam Vital Signs: Last Vital Signs Pulse 78 09/27/23 12:57 BP 140/78 H 09/27/23 12:57 BMI result Body Mass Index 20.7 Const General: cooperative, healthy appearing, comfortable and no acute distress Orientation/consciousness: patient oriented x3 Neck Neck: Yes normal visual inspection and Yes no JVD Resp Effort & Inspection: normal respiratory effort Auscultation: clear to auscultation bilaterally, no crackles, no rales, no rhonchi and no wheezes Cardio Jugular venous distension: no JVD Rate: regular rate Rhythm: regular rhythm Heart sounds: S1 normal heart sound present, S2 normal heart sound present, no murmurs and no rubs Neuro General: patient oriented x3 Extrem General: Yes normal to inspection, No no pedal edema and No calf tenderness Psych Appearance: grossly normal Mental Status: mental status grossly normal Speech and movement: Normal speech and movement present Assessment & Plan Assessment & Plan (1) Uncontrolled hypertension: Code(s): I10 - Essential (primary) hypertension Category: Medical Plan: Blood pressure elevated last visit as he was not taking his medications. He now reports that he has been taking them consistently but blood pressure at home is still elevated with systolic 140 to 150s. He does not like the way the carvedilol makes him feel. He believes it is causing a strong pounding heart. In the past he was on lisinopril and reported abdominal discomfort and constipation. He is not reporting side effects with the amlodipine. His last echocardiogram showed. Last echocardiogram done 02/21/2022 showed mildly dilated left ventricle with EF 40-45%, impaired relaxation, ascending aorta 3.9 cm. His EKGs do show sinus rhythm with LVH. The importance of good blood p ressure control reviewed with him. Will have him stop carvedilol and start on metoprolol. Will have him start on valsartan 40 mg daily. Plan will be to further titrate medications as tolerated. Continue amlodipine without change. Once blood pressure better controlled will update his echocardiogram. Low-salt diet reviewed. Cardiology follow-up 2 months, sooner if needed. (2) Left ventricular hypertrophy: Code(s): I51.7 - Cardiomegaly Category: Medical Plan: As above (3) Ascending aortic aneurysm: Code(s): I71.21 - Aneurysm of the ascending aorta, without rupture Category: Medical Plan: 3.9 cm on last echocardiogram. CTA of the coronaries on 06/08/2022 did show mildly dilated ascending aorta 4.2 cm. Will continue to follow. Working on blood pressure control. (4) Abnormal nuclear stress test: Code(s): R94.39 - Abnormal result of other cardiovascular function study Category: Medical Plan: Nuclear stress test done 05/02/2022 showed possible inferior wall ischemia. A CTA of the coronary arteries was done on 06/08/2022 showing no significant coronary artery disease. He has no reports of anginal sounding symptoms. Plan Time spent on chart review, documentation, interview and assessment Medications: New metoprolol succinate ER Stop Carvedilol - change to Metoprolol xl 25 mg PO DAILY 30 tabs 3RF valsartan New - for hypertension 40 mg PO DAILY 30 days 30 tabs 3RF Discontinued carvedilol must administer with a meal/food Discontinued Reason: Doctor's Order 3.125 mg PO BID 90 days 180 tabs 3RF Coding Level of Care Code Est Pt Level 4 (61796) Diagnoses Uncontrolled hypertension I10 Left ventricular hypertrophy I51.7 Ascending aortic aneurysm I71.21 Abnormal nuclear stress test R94.39
[2023-09-27 12:57] VITALS: BP 140/78; PULSE 78; BMI 20.7
== END 2023-09-27 13:32 | disposition home or self-care (01) ==
PROVIDERS: PCP Internal Medicine Geriatric Medicine; Visit Provider Nurse Practitioner Family
DX: I10 Essential (primary) hypertension (principal); I51.7 Cardiomegaly; I71.21 Aneurysm of the ascending aorta, without rupture; R94.39 Abnormal result of other cardiovascular function study
CPT/HCPCS: 99214

== ENCOUNTER → 2023-09-27 12:40 | Outpatient (BNVA) | payer MEDICARE, MEDICAID, SELFPAY | PROVIDERS: PCP Internal Medicine Geriatric Medicine; Visit Provider Nurse Practitioner Family | DX: I10 Essential (primary) hypertension (principal); I51.7 Cardiomegaly; I71.21 Aneurysm of the ascending aorta, without rupture; R94.39 Abnormal result of other cardiovascular function study | CPT/HCPCS: 99212 ==

== ENCOUNTER 2023-11-12 08:35 | Outpatient (REF) | payer MEDICARE, MEDICAID, SELFPAY ==
[2023-11-12 10:11] LABS: PSA,Total (Free>4and<10) 6.11 ng/mL (0.00-4.00)
[2023-11-14 11:34] LABS: Free Prostate Spec Ag 0.9 ng/mL; Percent Free Prostate Spec Ag 15 % (calc) (>25); Prostate Specific Ag Total 6.2 ng/mL (< OR = 4.0)
== END 2023-11-12 08:36 | disposition home or self-care (01) ==
LOC: HO.LAB 08:35
PROVIDERS: PCP Internal Medicine Geriatric Medicine; Visit Provider Urology
DX: R97.20 Elevated prostate specific antigen [PSA] (principal); Z12.5 Encounter for screening for malignant neoplasm of prostate
CPT/HCPCS: 36415; 84153; 84154

== ENCOUNTER 2024-07-22 08:48 | Outpatient (REF) | payer MEDICARE, MEDICAID, SELFPAY ==
--- OUTSIDE RECORDS SUMMARY | 2024-07-22 09:10 | XMS_ITS | Encounter Summary ---
Author Organization [employer] Address [address] [place] [address] Care Team Providers Care Supply Technician Name Role Phone Name, Rivera BAKER Primary Care Provider [phone] Reason for Visit * Reason Onset Date Comments returning 05/25/2022 Encounter Details Date Type Department Care Team (Late st Contact Info) Description 05/25/2022 Telephone [facility] [address] [place] [address] Name, MD Rivera [address] [place] [phone] returning Social History Tobacco Use Types Packs/Day Years Used Date Smoking Tobacco: Never Assessed Sex and Gender Information Value Date Recorded Sex Assigned at Male 12/25/2021 10:17 AM EDT Legal Sex Male 10:17 AM EDT Gender Identity Male 12/25/2021 10:17 AM EDT Sexual Orientation Straight 12/25/2021 10 :17 AM EDT documented as of this encounter Miscellaneous Notes * Telephone Encounter - Cady Miramontes - 05/25/2022 10:01 AM EDT Tc from pt returning phone call. Pt states he received a call from us. Call Center Dispatcher does not see any message regarding at call. Please contact pt at [phone] Nepali speaker documented in this encounter Plan of Treatment Upcoming Encounters Date Type Department Care Team (Late st Contact Info) Description 07/24/2024 11:00 AM EDT Telemedicine [facility] [address] [place] [phone] 10/12/2024 11:30 AM EDT Office Visit [facility] [address] [place] [address] Name, [place] [address] documented as of this encounter Visit Diagnoses Not on filedocumented in this encounter Care Teams Supply Technician Relationship Specialty Start Date End Date Name, [place] [address] PCP - General Family Medicine 06/09/21 documented as of this encounter
[2024-07-22 11:28] LABS: MANUAL DIFF FLAG NO
[2024-07-22 11:36] LABS: Basophils Percent Auto 0.6 % (0-2); Eosinophils Absolute Auto 0.1 X10*3/uL (0.0-0.4); Eosinophils Percent Auto 2.1 % (0-4); Hematocrit 51.7 % (42.0-52.0); Hemoglobin 17.3 g/dl (14.0-18.0); Imm Gran Abs Auto 0.01 X10*3/uL (0.00-0.03); Imm Gran Pct Auto 0.3 % (0.0-0.4); Lymphocytes Absolute Auto 1.1 X10*3/uL (1.2-4.9); Lymphocytes Percent Auto 31.3 % (20-40); Mean Corpuscular HGB Conc 33.5 g/dl (31.0-36.0); Mean Corpuscular Hemoglobin 28.5 pg (27.0-33.0); Mean Corpuscular Volume 85.3 fL (80.0-98.0); Mean Platelet Volume 11.3 fL (9.4-12.4); Monocytes Absolute Auto 0.4 X10*3/uL (0.1-1.2); Monocytes Percent Auto 10.9 % (2-11); Neutrophils Absolute Auto 1.9 x10*3/uL (2.0-8.3); Neutrophils Percent Auto 54.8 % (45-73); Platelet Count 264 X10*3/uL (160-400); Red Blood Count 6.06 X10*6/uL (4.60-5.80); Red Cell Distribution Width 13.3 % (11.0-16.0); White Blood Count 3.4 X10*3/uL (4.8-10.8)
[2024-07-22 12:18] LABS: Alanine Aminotransferase 22 U/L (0-40); Albumin Level 4.6 g/dL (3.5-5.0); Alkaline Phosphatase 75 U/L (39-117); Anion Gap 11 (12-20); Aspartate Amino Transferase 25 U/L (5-37); Bilirubin Total 0.5 mg/dL (0.0-1.0); Blood Urea Nitrogen 14 mg/dL (9-16); Calcium 9.6 mg/dL (8.4-10.2); Carbon Dioxide 25 mmol/L (22-29); Chloride 106 mmol/L (96-108); Cholesterol 222 mg/dL (<200); Estimated Glomerular Filt Rate > 60; Glucose Random 113 mg/dL (60-115); HDL Cholesterol 50 mg/dL (>40); LDL Cholesterol Calculated 146 mg/dL (<100); Potassium 3.9 mmol/L (3.3-5.1); Sodium 138 mmol/L (135-145); Total Protein 7.8 g/dL (6.5-8.0); Triglycerides 131 mg/dL (<150)
[2024-07-22 12:22] LABS: Prostate Specific Antigen 23.19 ng/mL (<0.05-4.0)
== END 2024-07-22 08:49 | disposition home or self-care (01) ==
LOC: HO.HHCL 08:48
PROVIDERS: Visit Provider Internal Medicine Geriatric Medicine
DX: I10 Essential (primary) hypertension (principal); R97.20 Elevated prostate specific antigen [PSA]; Z12.5 Encounter for screening for malignant neoplasm of prostate
CPT/HCPCS: 36415; 80053; 80061; 84153; 85025

== ENCOUNTER → 2024-08-21 14:42 | Outpatient (REF) | payer MEDICARE, MEDICAID, SELFPAY ==
--- NOTE | 2024-08-21 14:46 | CA_ITS ---
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 The calculated ejection fraction is 36% by biplane method. - There is mild aortic valve regurgitation. Findings Procedure Information Contrast agent, definity, is being given per protocol without apparent complications. Left Ventricle Severely increased left ventricular cavity size. There is normal left ventricular wall thickness. The left ventricular systolic function is moderately decreased. The calculated ejection fraction is 36% by biplane method. There is moderate global hypokinesis. Evidence suggests grade I (mild) diastolic dysfunction. Right Ventricle Normal right ventricular cavity size and systolic function. Atria The left atrium is mildly dilated. The right atrium is normal in size. Aortic Valve There is a normal trileaflet aortic valve. There is no aortic valve stenosis. There is mild aortic valve regurgitation. Mitral Valve The mitral valve appears normal. There is trace mitral valve regurgitation. There is no mitral valve stenosis. Pulmonic Valve The pulmonic valve is likely normal. Tricuspid Valve There is trace tricuspid valve regurgitation. There is no evidence of pulmonary hypertension. Great Vessels The asc aorta is normal in size. Venous The inferior vena cava is mildly dilated and collapses greater than 50% with inspiration. Pericardium/Pleural There is no evidence of pericardial effusion. Prior Study Comparison Changes noted compared to prior study dated: 02/21/2022. Decrease in LVEF. LV is more dilated. Measurements 2D Linear Measurements IVSd: 0.79 0.6-0.9/0.6-1.0 cm LVIDd: 6.88 3.9-5.3/4.2-5.9 cm LVIDd Index: 3.39 2.4-3.2/2.2-3.1 cm/m2 LVIDs: 6.21 2.0-3.6 cm LVPWd: 0.69 0.7-1.1 cm LA Diam: 4.30 2.7-3.8/3.0-4.0 cm LAIDs Index: 2.12 1.5-2.3 cm/m2 LV Mass: 268.74 67-162/88-224 g LV Mass Index: 132.39 43-95/49-115 g/m2 LVOT Diam: 2.20 3.0+(-)1.3 cm 2D Systolic Function EF 4C: 34.90 >55% EF 2C: 35.10 >55% EF BiP: 35.50 >55% Mitral Valve MV Pk E: 0.71 MV PK A: 0.37 MV Decel Time: 252.00 E/A: 1.90 E'Lateral: 5.98 E'Medial: 5.22 E/E' Med: 13.60 E/E' Lat: 11.90 PHT: 74.00 MVA PHT: 2.97 Decel [place]: 2.81 Aortic Valve AoV Pk Dell: 1.81 AoV Pk Grad: 13.00 AI Pk Dell: 5.01 AI [place]: 3.00 LVOT LVOT Pk Dell: 1.88 LVOT Mn Dell: 1.29 LVOT VTI: 0.34 LVOT Pk Grad: 14.00 LVOT Mn Grad: 8.00 LVOT Diam: 2.20 LVOT Area: 3.80 Diastolic Function MV Pk E: 0.71 MV Pk A: 0.37 E/A: 1.90 E'Medial: 5.22 E/E' Med: 13.60 E' Laterial: 5.98 E/E' Lat: 11.90 Right Ventricle TAPSE (mm): 22.10 TVS' Dell: 10.60 Tricuspid Valve RA Press: 8.00 Great Vessels Aorta Sinus of Valsalva: 3.17 2.0-3.5 cm Ao Asc: 3.80 2.1-3.4 cm Updated in Other Vendor System with Status of Final Jaskarna Mitchell MD electronically signed on 08/22/2024 12:37:11 PM with status of Final
--- OUTSIDE RECORDS SUMMARY | 2024-08-21 15:00 | XMS_ITS | Encounter Summary ---
Author Organization [employer] Address [address] [facility] [address] [place] [address] Care Team Providers Care Physics Instructor Name Role Phone Name, Rivera BAKER Primary Care Provider [phone] Reason for Visit * Reason Onset Date Comments returning 05/25/2022 Encounter Details Date Type Department Care Team (Late st Contact Info) Description 05/25/2022 Telephone [facility] [address] [place] [phone] Name, MD Rivera [address] [place] [phone] returning Social History Tobacco Use Types Packs/Day [...] states he received a call from us. Supervisor Special Effects does not see any message regarding at call. Please contact pt at [phone] South Korean speaker documented in this encounter Plan of Treatment Upcoming Encounters Date Type Department Care Team (Late st Contact Info) Description 10/12/2024 11:30 AM EDT Office Visit [facility] [address] [place] [address] [phone] Name, MD Rivera [address] [place] [address] documented as of this encounter Visit Diagnoses Not on filedocumented in this encounter Care Teams Physics Instructor Relationship Specialty Start Date End Date Name, MD Rivera [address] [place] [address] PCP - General Family Medicine 06/09/21 documented as of this encounter
== END ==
LOC: HO.CARD 14:42
PROVIDERS: PCP Internal Medicine Geriatric Medicine; Visit Provider Internal Medicine Geriatric Medicine
DX: I71.21 Aneurysm of the ascending aorta, without rupture (principal); I11.9 Hypertensive heart disease without heart failure
CPT/HCPCS: 93306; Q9957

== ENCOUNTER → 2024-08-21 14:46 | Outpatient (BNV) | payer MEDICARE, MEDICAID, SELFPAY | PROVIDERS: PCP Internal Medicine Geriatric Medicine; Visit Provider Internal Medicine | DX: I35.1 Nonrheumatic aortic (valve) insufficiency (principal); I51.89 Other ill-defined heart diseases | CPT/HCPCS: 93306 ==

== ENCOUNTER 2024-10-26 15:55 | Emergency (ER) | payer MEDICARE, MEDICAID, SELFPAY ==
--- OUTSIDE RECORDS SUMMARY | 2023-06-06 07:00 | XMS_ITS ---
Author Organization [facility] Address [address] [place] [address] Care Team Providers Care Combined Rail Operator Name Role Phone Name Rivera BAKER Primary Care Provider Sim Verde [phone] REASON FOR VISIT Patient presents today for a positive cologuard Encounters Encounter Location Date Provider Diagnosis [facility] [address] [place] [address] 06/06/2023 Sim Rangel Plan Of Treatment No Information Progress Notes * BENSON SEYMOURDOB: (69 yo M)Acc No.[id number]:06/06/2023 Progress Notes Patient: BENSON HAWTHORNE Provider: Jose Rangel MD :1955 A ge:67 Y S ex:Male Date:06/06/2023 Address:[address] [place] [address] [address] , [id number] Pcp:Rivera Lang MD Subjective: * Chief Complaints: * 1 . Patient presents today for a positive cologuard . * Medical History: Objective: * Vitals: Assessment: Plan: * Treatment: * * The named appointment provid er may or may not be the originator of this progress note, and it is not deemed complete until electronically signed by the appointment provider. Sign off status: Pending * Provider: Jose Rangel MD Date: 0 06/06/2023 Generated for Isela ng/Favijayg/eTransmitting on: 0 10/26/2024 04:57 PM EDT
[2024-10-26 16:37] VITALS: BP 169/92; PULSE 97; RESP 20; TEMP 36.8; O2SAT 94; BMI 22.1
--- OUTSIDE RECORDS SUMMARY | 2024-10-26 16:57 | XMS_ITS | Encounter Summary ---
Author Organization [employer] Address [address] [facility] [address] [place] [address] Care Team Providers Care Marine Equipment Sales Engineer Name Role Phone Name, Rivera BAKER Primary Care Provider [phone] Reason for Visit * Reason Onset Date Comments returning 05/25/2022 Encounter Details Date Type Department Care Team (Late st Contact Info) Description 05/25/2022 Telephone [facility] [address] [place] [phone] Name, MD Rivera [address] [place] [phone] returning Social History Tobacco Use Types Packs/Day [...] states he received a call from us. Inker [employer] does not see any message regarding at call. Please contact pt at [phone] Marshallese speaker documented in this encounter Plan of Treatment Upcoming Encounters Date Type Department Care Team (Late st Contact Info) Description 01/08/2025 9:15 AM EST Office Visit [facility] [address] [place] [phone] Name, MD Rivera [address] [place] [address] documented as of this encounter Visit Diagnoses Not on filedocumented in this encounter Care Teams Marine Equipment Sales Engineer Relationship Specialty Start Date End Date Name, MD Rivera [address] [place] [address] PCP - General Family Medicine 06/09/21 documented as of this encounter
--- OUTSIDE RECORDS SUMMARY | 2024-10-26 16:57 | XMS_ITS | Patient Health Record ---
Author Organization [facility] Address [address] [place] [address] Care Team Providers Care Product Marketing Engineer Name Role Phone Name Rivera BAKER Primary Care Provider [place] [phone] Reason For Referral No Information Plan Of Treatment No Information Insurance Providers Payer Name Payer Address Payer Phone Subscriber Number Group Number Insured Name Patient Relationship to Insured Coverage Start Date Coverage End Date [facility] [address] [place] [address] [id number] BENSON SEYMOUR Self - patient is the insured
--- OUTSIDE RECORDS SUMMARY | 2024-10-26 16:57 | XMS_ITS | Encounter Summary ---
Author Organization [employer] Address [address] [place] [address] Care Team Providers Care Material Expediter Name Role Phone Name, Rivera BAKER Primary Care Provider [phone] Reason for Visit * Reason Comments [facility] Recovery Supports Encounter Details Date Type Department Care Team ([facility] st Contact Info) Description 10/22/2024 Patient Outreach [facility] [address] [place], [place] [phone] Jamie Fair Recovery Supports Social History Tobacco Use Types Packs/Day Years Used Date Smoking Tobacco: Never Smokeless Tobacco: Never Alcohol Use Standard Drinks/Week Comments Not Currently 0 (1 standard drink = 0.6 oz pur e alcohol) Depression Answer Date Recorded Patient Health Questionnaire-9 Score 0 07/17/2024 Patient Health Questionnaire-9 Score 0 07/17/2024 Last PHQ-9: Questionnaire Data Not on file 0 07/17/2024 Housing Stability Answer Date Recorded What is your housing situation today? I have jigar moe 07/17/[address] you li ve. Do you have problems with any of the following? None of the above 07/17/2024 Food Insecurity Answer Date Recorded Within the past 12 months, y ou worried that your food would run out before you got money to buy more: Never True 07/17/2024 Within the past 12 months,th e food you bought just didn't last and you didn't have enough money to get more: Never True Transportation Answer Date Recorded In the past 12 months, has l ack of transportation kept you from medical appts, meetings, work or from getting things needed for daily living? No 07/17/2024 Utilities Answer Date Recorded In the past 12 months, has t he electric, gas, oil or water company threatened to shut off services in your home? No 07/17/2024 Depression Answer Date Recorded Patient Health Questionnaire-2 Score 0 07/17/2024 Internet Access Answer Date Recorded Internet Access Q1 No 07/17/2024 Internet Access Q2 I do not want or need it 06/26 Sex and Gender Information Value Date Recorded Sex Assigned at Male 12/25/2021 10:17 AM EDT Legal Sex Male 10:17 AM EDT Gender Identity Male 12/25/2021 10:17 AM EDT Sexual Orientation Straight 12/25/2021 10 :17 AM EDT documented as of this encounter Progress Notes * Jamie Fair - 10/22/2024 3:33 PM EDT I met with Angel today. Setting: in person at [facility] Recovery Wellness Goals worked on: Physical Health/Mental Health Social Stability Spiritual Wellness Action taken/next steps: Attended recovery support group Contingency management Additional comments: Jamie Fair documented in this encounter Plan of Treatment Upcoming Encounters Date Type Department Care Team (Late st Contact Info) Description 01/08/2025 9:15 AM EST Office Visit [facility] [address] [place] [phone] Name, MD Rivera [address] [place] [phone] documented as of this encounter Goals Goal Patient Goal Type Associated Problems Recent Progress Patient-Stated? Author Increase coping skills to promote long-term recovery and improve ability to perform daily activities General On track( 025 1:53 PM EST) No Arlnee Naranjo, RN Increase coping skills to promote long-term recovery and improve ability to perform daily activities General No Arlene Naranjo, RN documented as of this encounter Visit Diagnoses Not on filedocumented in this encounter Additional Health Concerns Assessment Noted Time PHQ-9 Depression Total Score: 0 07/18/19 25 1:26 PM EDT documented as of this encounter Care Teams Material Expediter Relationship Specialty Start Date End Date NameRivera MD [address] [place] [phone] PCP - General Family Medicine 06/09/21 documented as of this encounter
--- OUTSIDE RECORDS SUMMARY | 2024-10-26 16:57 | XMS_ITS | Clinical Summary ---
Author Organization [employer] Address [address] [facility] [address] [place] [address] Care Team Providers Care Explosives Mixer Operator Name Role Phone Name, Rivera BAKER Primary Care Provider [phone] Allergies No known active allergies Medications * This document contains information received from the source organization and may not represent a complete record from that organization. polyvinyl alcohol (Liquifilm Tears) 1.4 % ophthalmic solution PLACE 1 DROP IN EACH EYE TWICE DAILY DIRECTED 05/30/19 23 Active valsartan-hydr oCHLOROthiazid e (Diovan HCT) 80-12.5 MG tablet Take 1 tablet by mouth Once per day. 30 tablet 11 10/13/19 25 026 Active carvedilol (Coreg) 6.25 MG tablet Take 1 tablet (6.25 mg) by mouth with breakfast and with evening meal. 60 tablet 11 10/13/19 25 026 Active mometasone (Elocon) 0.1 % ointment Apply topically Once per day. 45 g 2 10/13/19 25 026 Active carvedilol (Coreg) 3.125 MG tablet Take 1 tablet (3.125 mg) by mouth with breakfast and with evening meal. 60 tablet 2 07/18/19 25 025 Discontinued(Do se adjustment) valsartan-hydr oCHLOROthiazid e (Diovan HCT) 80-12.5 MG tablet Take 1 tablet by mouth Once per day. 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 ECHO from 2021: Acquired hallux valgus 07/16/2024 Acquired hammer toe of right foot 07/16/2024 Diverticulosis of colon 07/16/2024 Overview (07/16/2024): colonoscopy 06/2008- repeat in 10 yr Elevated rheumatoid factor 07/16/2024 Non-pressure chronic ulcer o f other part of right foot limited to breakdown of skin 07/16/2024 HLD (hyperlipidemia) 07/16/2024 Positive colorectal cancer screening using Colog uard test 02/13/2023 Bunion of great toe of right foot 01/15/2023 Anxiety 09/27/2021 Hypercholesteremia 06/26/2021 Elevated PSA 06/26/2021 HTN (hypertension) 06/09/2021 Resolved Problems Problem Noted Date Diagnosed Date Resolved Date Cardiopathy 01/15/2023 07/17/2024 Overview (05/20/2023): EF of 45% Normal CT angiogram 05/2022 Related to HTN? Alcohol? He is not using statin prescribed by cardi Encounters * This document contains information received from the source organization and may not represent a complete record from that organization. Date Type Department Care Team Description 10/22/2024 Patient Outreach [facility] [address] [place] [address] Jamie Fair [facility] 10/20/2024 Patient Outreach [facility] [address] [place] [address] Jamie Fair [facility] 10/19/2024 Patient Outreach [facility] [address] [place] [address] Beck Guzman RC [facility] 10/15/2024 Patient Outreach [facility] [address] [place] [address] Jamie Fair [facility] 10/13/2024 Telephone [facility] [address] [place] [address] Name, MD Rivera 10/13/2024 Patient Outreach [facility] [address] [place] [address] Aidan Villela [facility] 10/12/2024 11:30 AM EDT Office Visit [facility] [place] [address] Rivera Lang MD Cardiomyopathy due to hypertension, 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); Hypertension, unspecified type; Elevated PSA; Rash 10/12/2024 Patient Outreach [facility] [address] [place] [address] Beck Guzman 10/12/2024 Travel 10/09/2024 Telephone [facility] [address] [place] [address] Pascale Baugh MA Chart Prep 10/08/2024 Patient Outreach [facility] [address] [place] [address] Jamie Fair [facility] 10/06/2024 Patient Outreach [facility] [address] [place] [address] Aidan Villela [facility] 10/05/2024 Patient Outreach [facility] [address] [place] [address] Beck Guzman [facility] 10/01/2024 Patient Outreach [facility] [address] [place] [address] Jamie Fair [facility] 09/30/2024 9:00 AM EDT Office Visit [facility] [place] [address] Dominick Calderón MD Alcohol use disorder (Primary Dx) 09/30/2024 Travel 09/25/2024 Patient Outreach [facility] [place] [address] Aidan V[facility]la [facility] 09/23/2024 9:00 AM EDT Office Visit [facility] [place] [address] Dominick Calderón MD Alcohol use disorder (Primary Dx) 09/23/2024 Travel 09/22/2024 Patient Outreach [facility] [place] [address] Aidan Villela [facility] 09/21/2024 Patient Outreach [facility] [address] [place] [address] Beck Guzman [facility] 09/17/2024 Patient Outreach [facility] [address] [place] [address] Jamie Fair [facility] 09/16/2024 9:00 AM EDT Office Visit [facility] [address] [place] [address] Dominick Calderón MD Alcohol use disorder (Primary Dx) 09/16/2024 Travel 09/16/2024 Telephone [facility] [address] [place] [address] Rivera Lang MD TRANSFER REQUEST 09/15/2024 Patient Outreach [facility] [address] [place] [address] Aidan Villela [facility] 09/14/2024 Patient Outreach [address] [address] Beck Guzman [facility] 09/11/2024 Patient Outreach [facility] [address] [place] [address] Mark Bonilla [facility] 09/09/2024 9:00 AM EDT Office Visit [address] [address] Dominick Calderón MD Alcohol use disorder (Primary Dx) 09/09/2024 Travel 09/07/2024 Patient Outreach [facility] [address] [place] [address] Beck Guzman [facility] 09/04/2024 Patient Outreach [facility] [address] [place] [address] Aidan Villela [facility] 09/03/2024 Patient Outreach [facility] [address] [place] [address] Aidan Villela [facility] 09/02/2024 9:00 AM EDT Office Visit [facility] [address] [place] [address] Dominick Calderón MD Alcohol use disorder (Primary Dx) 09/02/2024 Travel 09/01/2024 Patient Outreach [facility] [address] [place] [address] Aidan Villela [facility] 08/26/2024 9:00 AM EDT Office Visit [facility] [address] [place] [address] Dominick Calderón MD Alcohol use disorder (Primary Dx) 08/26/2024 Travel 08/25/2024 Patient Outreach [facility] [address] [place] [address] Benja Juarez [facility] 08/24/2024 Patient Outreach [facility] [address] [place] [address] Beck Guzman [facility] 08/21/2024 Patient Outreach [facility] [address] [place] [address] Aidan Villela [facility] 08/20/2024 Patient Outreach [address] [address] Beck Guzman [facility] 08/19/2024 9:00 AM EDT Office Visit [facility] [address] [place] [address] Miller Everett MD Alcohol use disorder (Primary Dx) 08/19/2024 Travel 08/17/2024 Patient Outreach [facility] [address] [place] [address] Beck Guzman [facility] 08/14/2024 Patient Outreach [address] [address] Aidan Villela [facility] 08/12/2024 9:00 AM EDT Office Visit [facility] [address] [place] [address] Dominick Calderón MD Alcohol use disorder (Primary Dx) 08/12/2024 Travel 08/11/2024 Patient Outreach [facility] [address] [place] [address] Aidan Villela [facility] 08/10/2024 Patient Outreach [facility] [address] [place] [address] Beck Guzman [facility] 08/07/2024 Patient Outreach [address] [address] Aidan Villela [facility] 08/06/2024 Patient Outreach [facility] [address] [place] [address] Jamie Fair [facility] 08/04/2024 Patient Outreach [facility] [address] [place] [address] Benja Juarez [facility] 08/03/2024 Patient Outreach [address] [address] Benja Juarez [facility] 07/30/2024 Patient Outreach [address] [address] aMrk Bonilla [facility] 07/29/2024 9:00 AM EDT Office Visit [address] [address] Dominick Calderón MD Alcohol use disorder (Primary Dx) 07/29/2024 Travel 07/28/2024 Patient Outreach [address] [address] Beck Guzman [facility] 07/27/2024 Patient Outreach [address] [address] Mark Bonilla [facility] from Last 3 Months Social History Tobacco Use Types Packs/Day Years Used Date Smoking Tobacco: Never Smokeless Tobacco: Never Tobacco Cessation:Counseling Given: Not Answered Alcohol Use Standard Drinks/Week Comments Not Currently [...] Orientation Straight 12/25/2021 10 :17 AM EDT Last Filed Vital Signs Vital Sign Reading Time Taken Comments Blood Pressure 160/80 10/12/2024 12:51 PM EDT Pulse 76 10/12/2024 11:49 AM EDT Temperature 36.9 C (98.4 F) 10/12/2024 11:49 AM EDT Respiratory Rate 14 10/12/2024 11:49 AM EDT Oxygen Saturation 98% 10/12/2024 11:49 AM EDT Inhaled Oxygen Concentration - - Weight 77.7 kg (171 lb 6.4 oz) 10/12/2024 11:49 AM EDT Height 188 cm (6' 2 ) 10/12/2024 11:49 AM EDT Body Mass Index 22.01 10/12/2024 11:49 AM EDT Plan of Treatment Upcoming Encounters Date Type Department Care Team (Late st Contact Info) Description 01/08/2025 9:15 AM EST Office Visit [facility] [address] [place] [address] Name, MD Rivera [address] [place] [address] Health Maintenance Due Date Last Done Comments CT Colonography 1957 Colonoscopy 1957 FIT 1957 FOBT 1957 Sigmoidoscopy 1955 Hepatitis C Screening 07/19/1975 DTaP/Tdap/Td Vaccines (1 - Tdap) 1976 Pneumococcal Vaccine: 50+ Years (1 of 1 - PCV) 07/19/2007 Zoster Vaccines (1 of 2) 07/19/2007 COVID-19 Vaccine (1 - 2023- season) 2023 Influenza Vaccine (#1) 2024 Alcohol/Substance Use Screening 07/17/2025 07/17/2024 Depression Screening 07/17/2025 07/17/2024, 07/18/19 SDOH Screening 07/17/2025 07/17/2024 Tobacco Screening 10/12/2025 10/12/2024 Colorectal Cancer Screening 02/05/2026 FIT DNA/Cologuard 02/05/2026 02/05/2023 Lipid Panel 07/22/2029 07/22/2024, 12/27, 09/27/2021, Additional history exists RSV Patients and Patients Aged 60 years or older (1 - 1-dose 75+ series) 2032 HIB Vaccines Aged Out No longer eligi ble based on patient's age to complete this topic HPV Vaccines Aged Out No longer eligi ble based on patient's age to complete this topic Hepatitis A Vaccines Aged Out No long er eligible based on patient's age to complete this topic Hepatitis B Vaccines Aged Out No long er eligible based on patient's age to complete this topic IPV Vaccines Aged Out No longer eligi ble based on patient's age to complete this topic Meningococcal B Vaccine Aged Out No l onger eligible based on patient's age to complete this topic Meningococcal Vaccine Aged Out No tayla jolly eligible based on patient's age to complete this topic RSV under 20 months Aged Out No longe r eligible based on patient's age to complete this topic Rotavirus Vaccines Aged Out No longer eligible based on patient's age to complete this topic Goals Goal Patient Goal Type Associated Problems Recent Progress Patient-Stated? Author Increase coping skills to promote long-term recovery and improve ability to perform daily activities General On track( 025 1:53 PM EST) No Arlene Naranjo, RN Increase coping skills to promote long-term recovery and improve ability to perform daily activities General No Arlene Naranjo, claim clerk Procedure Name Priority Date/Time Associated Diagnosis Comments LIPID PANEL, STANDARD Routine 07/22/2024 8:53 AM EDT Hypertension, unspecified type LAB COLOGUARD COLON CANCER SCREEN Routine 02/05/2023 12:01 AM EST Screen for colon cancer from Last 3 Months or Most Recently Relevant to Health Maintenance Results * (ABNORMAL) Lipid Panel, Standard (07/22/2024 8:53 AM EDT) Triglycerides 131 <150 mg/dL [facility] Comment:Desirable Triglyceri de: less than 150 mg/dLBorderline High Triglyceride 150-199 mg/dLHigh Triglyceride: 200-499 mg/dLVery High Triglyceride: greater than or equal to 5OO mg/dL Cholesterol 222(H) <200 mg/dL [facility] Comment:Desirable Cholestero l: less than 200 mg/dLBorderline High Cholesterol: 200-239 mg/dLHigh Cholesterol: greater than 239 mg/dL LDL Cholesterol Calculated 146(H) <100 mg/dL [facility] Comment:Desirable LDL: less than 100 mg/dLNear Optimal/Above Optimal LDL: 110- 129 mg/dLBorderline High LDL: 130-159 mg/dLHigh LDL: 160-189 mg/dLVery High LDL: greater than or equal to 190 mg/dL HDL Cholesterol 50 >40 mg/dL [facility] Comment:Desirable HDL: great er than 40 mg/dL Note: This HDL assay may give artificially low results in patients with liver disease. Blood Venous blood specimen / Unknown 07/22/2024 8:53 AM EDT 07/22/2024 11:23 AM EDT us Rivera Name MD LAB BLOOD ORDERABLES Final Resul t [facility] [address] [place] [address] [phone] * (ABNORMAL) Cologuard?? colon cancer screening (02/05/2023 12:01 AM EST) Cologuard Result Positive( A) Negative 02/12/2023 8:32 PM EST [facility] (CLIA #:[id number]) Comment: POSITIVE TEST RESULT. A positive Cologuard result should be followed with a colonoscopy or visual examination of the colon. The normal value (reference range) for this assay is negative. TEST DESCRIPTION: Composite algorithmic analysis of stool DNA-biomarkers with hemoglobin immunoassay. Quantitative values of individual biomarkers are not reportable and are not associated with individual biomarker result reference ranges. Cologuard is intended for colorectal cancer screening of adults of either sex, 45 years or older, who are at average-risk for colorectal cancer (CRC). Cologuard has been approved for use by the U.S. FDA. The performance of Cologuard was established in a cross sectional study of average-risk adults aged 50-84. Cologuard performance in patients ages 45 to 49 years was estimated by sub-group analysis of near-age groups. Colonoscopies performed for a positive result may find as the most clinically significant lesion: colorectal cancer [4.0%], advanced adenoma (including sessile serrated polyps greater than or equal to 1cm diameter) [20%] or non- advanced adenoma [31%]; or no colorectal neoplasia [45%]. These estimates are derived from a prospective cross-sectional screening study of 10,000 individuals at average risk for colorectal cancer who were screened with both Cologuard and colonoscopy. (Efren Bishop al, N Engl J Med 2014;370(14):0561-3443.) Cologuard may produce a false negative or false positive result (no colorectal cancer or precancerous polyp present at colonoscopy follow up). A negative Cologuard test result does not guarantee the absence of CRC or advanced adenoma (pre-cancer). The current Cologuard screening interval is every 3 years. ([place] [employer] Society and U.S. Multi-Society Task Force). Cologuard performance data in a 10,000 patient pivotal study using colonoscopy as the reference method can be accessed at the following location: www.[employer] Raven/results. Additional description of the Cologuard test process, warnings and precautions can be found at www.[employer]. Stool specimen (specimen) 02/05/2023 12:01 AM EST 02/06/2023 8:29 PM EST us Rivera Lang MD LAB MOLECULAR DIAGNOSTICS ORDERA BLES Final Result [facility] (CLIA #:[id number]) [address] [place] [address], [place] [phone] from Last 3 Months or Most Recently Relevant to Health Maintenance Insurance [facility] [address] STANDARD UHC MEDICARE ADVANTAGE Care Teams Explosives Mixer Operator Relationship Specialty Start Date End Date Name, MD Rivera [address] [place] [address] PCP - General Family Medicine 06/09/21
--- OUTSIDE RECORDS SUMMARY | 2024-10-26 16:58 | XMS_ITS | Patient Health Record ---
Author Organization [facility] [place] Address [address] [place] [address] Care Team Providers Care Oak Tanner Name Role Phone Name Rivera BAKER Primary Care Provider Patrice Sanchez Unavailable [phone] Allergies No Known Allergies Reason For Referral No Information Medications Medication SIG (Take, Route, Frequency, Duration) Notes Start Date End Date Status amLODIPine Besylate 10 MG 1 tablet Orall y Once a day; Duration: 30 day(s) Active Atorvastatin Calcium Active Baclofen 10 MG/20ML as directed Intrathecal Active Social History Tobacco Use: Social History Observation Description Date Details (start date - stop date) Never Smoker NA - NA Tobacco Use/Smoking Question Answer Notes Are you a: nonsmoker Alcohol Screen Question Answer Notes Did you have a drink containing alcohol in the p ast year? No Points 0 Interpretation Negative Tobacco use other than smoking: Question Answer Notes Are you an other tobacco user? No Problems Problem Type SNOMED Code ICD Code Onset Dates Problem Status W/U Status Risk Notes Problem Acquired hallux valgus (60795027) Hallux valgus (acquired), right foot (M20.11) Active confirmed Problem Non-pressure chronic ulcer of other part of right foot limited to breakdown of skin (L97.511) Active confirmed Problem Acquired hammer toe of right foot ([id number] 105) Other hammer toe(s) (acquired), right foot (M20.41) Active confirmed Plan Of Treatment Pending Test Test Name Order Date X ray : Foot, right 3V 04/20/2022 Insurance Providers Payer Name Payer Address Payer Phone Subscriber Number Group Number Insured Name Patient Relationship to Insured Coverage Start Date Coverage End Date [employer] Medicare [id number] [address] [address] [place] [address] [id number] Angel Villela Self - patient is the insured Medical (General) History Medical History History ICD Code Arthritis Back,Hip,and Knee pain Cataracts Fibromyalgia Gout High blood pressure Surgical History Surgery Date(Month/Year)
[2024-10-26 18:00] VITALS: BP 165/98; PULSE 92; RESP 15; TEMP 36.6; O2SAT 94
--- NOTE | 2024-10-26 18:20 | ED.ALCOHOL ---
HPI - Alcohol General Chief Complaint: ETOH/Substance Use Stated Complaint: SI Time Seen by Provider: 10/26/24 16:04 Source: patient and EMS Mode of arrival: EMS Limitations: other History of Present Illness ED Provider: Dr. Dionne Huff HPI narrative: Patient comes to the emergency room via ambulance. According to EMS, the patient reported that the patient may SI statements. Patient is here in the emergency room, intoxicated. Denies that he made any SI statements. Patient states that he is angry that his daughter does not visit him, but is saying that he is not suicidal. Denies homicidal statements. Related Data Previous Rx's ?Medication ?Instructions ?Recorded amlodipine 10 mg tablet 10 mg PO DAILY #90 tabs 04/29/23 dutasteride 0.5 mg capsule 0.5 mg PO DAILY #90 caps 06/21/23 metoprolol succinate 25 mg 25 mg PO DAILY #30 tabs 09/27/23 tablet,extended release 24 hr valsartan 40 mg tablet 40 mg PO DAILY 30 days #30 tabs 09/27/23 Allergies Allergy/AdvReac Type Severity Reaction Status Date / Time No Known Allergies (No Known Allergy Verified 10/26/24 16:39 Allergies*) Review of Systems Review of Systems: Constitutional : No Weight loss, No Fever, No Chills, No Night Sweats, No Fatigue, No Malaise ENT/Mouth : No Hearing loss, No Ear Pain, No Nasal Congestion, No Sinus Pain, No Hoarseness, No sore throat, No Rhinorrhea, No Swallowing Difficulty Eyes: No Eye Pain, No Swelling, No Redness, No Foreign Body, No Discharge, No Vision Changes Cardiovascular : No Chest Pain, No SOB, No Dyspnea on Exertion, No Orthopnea, No Edema, No Palpitations Respiratory : No Cough, No Sputum, No Wheezing, No Smoke Exposure, No Dyspnea Gastrointestinal : No Nausea, No Vomiting, No Diarrhea, No Constipation, No abdominal Pain, No Hematochezia, No Melena Genitourinary : no irregular bleeding, No Dysuria, No Urinary Frequency, No Hematuria, No Urinary Incontinence, No Urgency, No Flank Pain, No Urinary Flow Changes, No Hesitancy Musculoskeletal : No joint pain, No Myalgias, No Joint Swelling Skin : No Skin Lesions, No rash Neuro : No Weakness, No Numbness, No Paresthesias, No Loss of Consciousness, No Dizziness, No Headache Psych : No Anxiety/Panic, patient feeling angry, denies SI or HI. Admits to ETOH Heme/Lymph: No Bruising, No Bleeding,No Lymphadenopathy Endocrine : No Polyuria, No Polydipsia, No Temperature Intolerance PMF Past Medical History Medical History Anxiety High cholesterol Elevated PSA Essential hypertension Surgical History History of lung surgery Family History Family History Brother Diabetes Social History Social History Alcohol intake: current Alcohol intake frequency: a few times a week Alcohol type: beer Patient Tobacco Use Status: Never used Tobacco Substance Use Type: Marijuana Advance Directives: No Advance Directives Information Provided: Yes Physical Exam ED Exam Exam: Appearance: Alert. Oriented X3. Intoxicated, angry, yelling because his daughter called PD and is not here Eyes: Pupils equal, round and reactive to light. ENT: Pharynx normal. Neck: Normal inspection. Neck supple. No lymph nodes noted. No crepitus CVS: Normal heart rate and rhythm. Pulses normal. Normal S1 and S2 Respiratory: No respiratory distress. Breath sounds normal. No Wheezing. No rales Abdomen: Soft and nontender. No rigidity. No distention. Skin: Skin warm and dry. Normal skin color. Normal skin turgor. Extremities: No lower extremity edema. No Lacerations. No Rash Neuro: Oriented X 3. Standing, walking, seems intoxicated, cranial nerves 2-12 grossly intact Psych: A bit agitated, loud, angry at his daughter, redirectable, intoxicated Vital Signs: Vital Signs - 24 hr 10/26/24 16:37 10/26/24 18:00 10/26/24 20:30 Temperature 98.3 F 97.8 F 98.3 F Pulse Rate 97 92 79 Respiratory Rate 20 15 16 Blood Pressure 169/92 H 165/98 H 191/91 H Pulse Oximetry 94 94 94 Oxygen Delivery Method Room Air Room Air Room Air BMI result Body Mass Index 22.1 Course Course Course Narrative: All of patient's labs pending Care team consult pending Patient denies SI or HI. To move the patient's nurse who took report, the patient's daughter reported to EMS that the patient made SI statements Medical Decision Making Medical Decision Making MDM Narrative: My interpretation of labs: No significant abnormality in patient's hematology and chemistry, urine toxicology positive for marijuana and ethanol level 232 Patient is awake, alert and oriented x3, no acute distress, calm, cooperative, walking with normal steady gait. The care team evaluated the patient and they were able to get in touch with the patient's daughter. Also PD was called. PD confirms that there were no SI statements made. The daughters told the care team that the patient called to say goodbye and she got worried. However, when the care team and when I spoke to the patient, he is adamant that he is not SI or HI and ?that he loves himself and has plans to travel, visit family in [place] Patient ready for discharge. Patient agrees with plan. Patient is clinically sober to go home At this time, 21:00, physician observation will be stopped and patient can go Differential Diagnosis Differential Diagnoses: The differential diagnosis associated with the presentation includes (Anxiety, depression, polysubstance abuse, alcohol abuse) Admission/Observation Consideration of admission/observation: Escalation of care including admission/observation considered (Care team consult pending, disposition pending) Lab Data [facility] Lab Attestation statement: I reviewed the patient's lab results. 10/26/24 18:51 10/26/24 18:51 Labs: Lab Results 10/26/24 Range/Units 18:51 WBC 5.2 (4.8-10.8) X10*3/uL RBC 5.75 (4.60-5.80) X10*6/uL Hgb 16.9 (14.0-18.0) g/dl Hct 47.7 (42.0-52.0) % MCV 83.0 (80.0-98.0) fL MCH 29.4 (27.0-33.0) pg MCHC 35.4 (31.0-36.0) g/dl RDW 13.6 (11.0-16.0) % Plt Count 307 (160-400) X10*3/uL MPV 10.3 (9.4-12.4) fL Immature Gran % (Auto) 0.2 (0.0-0.4) % Neut % (Auto) 75.2 H (45-73) % Lymph % (Auto) 21.9 (20-40) % [place] % (Auto) 2.3 (2-11) % Eos % (Auto) 0.0 (0-4) % Baso % (Auto) 0.4 (0-2) % Lymph # (Auto) 1.1 L (1.2-4.9) X10*3/uL [place] # (Auto) 0.1 (0.1-1.2) X10*3/uL Eos # (Auto) 0.0 (0.0-0.4) X10*3/uL Baso # (Auto) 0.0 (0.0-0.2) X10*3/uL Abs Immat Gran (auto) 0.01 (0.00-0.03) X10*3/uL Absolute Neuts (auto) 3.9 (2.0-8.3) x10*3/uL Absolute Nucleated RBC 0.000 (0.0-0.012) X10*3/uL Nucleated RBC % (auto) 0.0 (0.0-0.2) /100WBC Sodium 144 (135-145) mmol/L Potassium 4.0 (3.3-5.1) mmol/L Chloride 111 H (96-108) mmol/L Carbon Dioxide 18 L (22-29) mmol/L Anion Gap 19 (12-20) BUN 8 L (9-16) mg/dL Creatinine 0.81 (0.5-1.4) mg/dL Estim Creat Clear Calc 97.6 Estimated GFR > 60 Random Glucose 103 (60-115) mg/dL Calcium 9.6 (8.4-10.2) mg/dL Total Bilirubin 0.4 (0.0-1.0) mg/dL Direct Bilirubin 0.1 (0.0-0.5) mg/dL AST 41 H (5-37) U/L ALT 24 (0-40) U/L Alkaline Phosphatase 84 (39-117) U/L Total Protein 8.6 H (6.5-8.0) g/dL Albumin 5.1 H (3.5-5.0) g/dL Urine Opiates Screen Not Detected (Not Detect) Ur Buprenorphine Scrn Not Detected (Not Detect) ng/mL Ur Oxycodone Screen Not Detected (Not Detect) ng/mL Urine Methadone Screen Not Detected (Not Detect) ng/mL Urine Fentanyl Screen Not Detected (Not Detect) Ur Barbiturates Screen Not Detected (Not Detect) Ur Phencyclidine Scrn Not Detected (Not Detect) Ur Amphetamines Screen Not Detected (Not Detect) U Benzodiazepines Scrn Not Detected (Not Detect) Urine Cocaine Screen Not Detected (Not Detect) U Marijuana (THC) Screen POSITIVE H (Not Detect) Ethyl Alcohol 232 mg/dL Critical Care Time Critical Care Time Critical Care Time: Yes Total Critical Care Time: 35 Attestation: I have personally provided critical care time. Time includes review of lab data, radiology results, discussion with consultants, and monitoring for potential decompensation. Intervention performed as documented. Discharge Plan Discharge Clinical Impression: Alcohol intoxication Patient Disposition: Home, Self-Care Instructions: Alcohol Intoxication (ED) Additional Instructions: Please follow-up with your primary care physician tomorrow. If you have any worsening or new symptoms, please return to the emergency room or call 911 Prescriptions: No Action dutasteride 0.5 mg capsule 0.5 mg PO DAILY Qty: 90 3RF metoprolol succinate 25 mg tablet extended release 24 hr 25 mg PO DAILY Qty: 30 3RF Rx Instructions: Stop Carvedilol - change to Metoprolol xl valsartan 40 mg tablet 40 mg PO DAILY 30 Days Qty: 30 3RF Rx Instructions: New - for hypertension amlodipine 10 mg tablet 10 mg PO DAILY Qty: 90 3RF Print Language: Macedonian
[2024-10-26 18:56] LABS: MANUAL DIFF FLAG NO
[2024-10-26 19:00] LABS: Hematocrit 47.7 % (42.0-52.0); Hemoglobin 16.9 g/dl (14.0-18.0); Imm Gran Abs Auto 0.01 X10*3/uL (0.00-0.03); Imm Gran Pct Auto 0.2 % (0.0-0.4); Lymphocytes Absolute Auto 1.1 X10*3/uL (1.2-4.9); Mean Corpuscular HGB Conc 35.4 g/dl (31.0-36.0); Mean Corpuscular Hemoglobin 29.4 pg (27.0-33.0); Mean Corpuscular Volume 83.0 fL (80.0-98.0); NRBC Abs Auto 0.000 X10*3/uL (0.0-0.012); NRBC Pct Auto 0.0 /100WBC (0.0-0.2); Platelet Count 307 X10*3/uL (160-400); Red Blood Count 5.75 X10*6/uL (4.60-5.80); White Blood Count 5.2 X10*3/uL (4.8-10.8)
[2024-10-26 19:33] LABS: Alanine Aminotransferase 24 U/L (0-40); Albumin Level 5.1 g/dL (3.5-5.0); Alkaline Phosphatase 84 U/L (39-117); Anion Gap 19 (12-20); Aspartate Amino Transferase 41 U/L (5-37); Blood Urea Nitrogen 8 mg/dL (9-16); Calcium 9.6 mg/dL (8.4-10.2); Carbon Dioxide 18 mmol/L (22-29); Chloride 111 mmol/L (96-108); Creatinine Clr Calc Pharmacy 97.6; Estimated Glomerular Filt Rate > 60; Potassium 4.0 mmol/L (3.3-5.1); Sodium 144 mmol/L (135-145); Total Protein 8.6 g/dL (6.5-8.0)
[2024-10-26 19:49] LABS: Cannabinoid Screen Urine POSITIVE (Not Detect)
[2024-10-26 20:30] VITALS: BP 191/91; PULSE 79; RESP 16; TEMP 36.8; O2SAT 94
[2024-10-26 21:00] VITALS: BP 186/98; PULSE 81; RESP 16; TEMP 36.8; O2SAT 94
== END 2024-10-26 21:03 | disposition home or self-care (01) ==
PROVIDERS: Emergency Provider Emergency Medicine; PCP Internal Medicine Geriatric Medicine
DX: F10.129 Alcohol abuse with intoxication, unspecified (principal); Y90.7 Blood alcohol level of 200-239 mg/100 ml; I10 Essential (primary) hypertension
CPT/HCPCS: 36415; 80048; 80076; 80307; 85025; 99284; S9485

== ENCOUNTER 2024-12-31 13:04 | Outpatient (AMB) | payer MEDICARE, SELFPAY ==
--- OUTSIDE RECORDS SUMMARY | 2024-12-30 09:00 | XMS_ITS | Encounter Summary ---
Author Organization [employer] Address [address] [facility] [address] [place] [address] Care Team Providers Care Special Day Class Teacher Name Role Phone Name, Rivera BAKER Primary Care Provider [phone] Reason for Visit * Reason Comments GBAT Encounter Details Date Type Department Care Team ([facility] st Contact Info) Description 12/30/2024 9:00 AM EST Office Visit [facility] [address] [place], [place] [phone] Dominick Calderón MD [address] [place] [address] Alcohol use disorder (Primary Dx) Social History Tobacco Use Types Packs/Day Years [...] as of this encounter Progress Notes * Dominick Calderón MD - 12/30/2024 9:00 AM EST Patient presents for Group-Based Addiction Treatment for AUD Patient with AUD not currently on MAT Declines any medication treatment at this time Spent 3 months at [facility] (12/28/2023 - 03/26/2024) Overall doing well without relapse LAST GBAT VISIT 12/23/2024 Patient presents for Group-Based Addiction Treatment for AUD Patient with AUD not currently on MAT Declines any medication treatment at this time Spent 3 months at [facility] (12/28/2023 - 03/26/2024) Overall doing well without relapse Reviewed the group goals, expectations and policies Consented to the group treatment options Actively participated in the group discussion with the topic of: Reborn in the Midst of Pain Following staff present at the visit: Physician, Belt Puncher, and Team RN Opportunities provided to address individual medical/medication/BH concerns States doing well without cravings or relapse TODAY GBAT VISIT 12/30/2024 Patient presents for Group-Based Addiction Treatment for AUD Patient with AUD not currently on MAT Declines any medication treatment at this time Spent 3 months at [facility] (12/28/2023 - 03/26/2024) Overall doing well without relapse Reviewed the group goals, expectations and policies Consented to the group treatment options Actively participated in the group discussion with the topic of: Inner Child: Embracing the Innocence Following staff present at the visit: Physician, Belt Puncher, and Team RN Opportunities provided to address individual medical/medication/BH concerns States doing well without cravings or relapse Review of Systems Psychiatric/Behavioral: Negative for behavioral problems and dysphoric mood. The patient is not nervous/anxious. Physical Exam Constitutional: Appearance: Normal appearance. Pulmonary: Effort: Pulmonary effort is normal. Neurological: Mental Status: He is alert. Psychiatric: Mood and Affect: Mood normal. Behavior: Behavior normal. Angel was seen today for gbat. Diagnoses and all orders for this visit: Alcohol use disorder (Primary) Patient presents for Group-Based Addiction Treatment of AUD Reviewed the group goals, expectations and policies Consented to the group treatment options Actively participated in the group discussed Future discussion topics reviewed Reviewed behavioral modification and accessing BH services Group counseling provided with a focus on support system, tools for achieving/maintaining recovery Reviewed barriers for these goals Discussed strategies to address when faced situations that may trigger use Following staff present at the visit: Physician, Belt Puncher, Team RN, and Assistant Case Manager Follow up in 1 week for the next GBAT meeting This information has been disclosed to you from records protected by federal confidentiality rules (42 CFR Part 2). The federal rules prohibit you from making any further disclosure of information inthis record that identifies a patient as having or having had a substance use disorder either directly, by reference to publicly available information, or through verification of such identification by another person unless further disclosure is expressly permitted by the written consent of the individual whose information is being disclosed or as otherwise permitted by (see2.3.1). The federal rules restrict any use of the information to investigate or prosecute with regard to a crime any patient with a substance use disorder, except as provided at 2.12??(5) and 2.65. documented in this encounter Plan of Treatment Upcoming Encounters Date Type Department Care Team (Late st Contact Info) Description 01/08/2025 9:15 AM EST Office Visit [facility] [address] [place] [phone] Name, MD Rivera [address], [place] [phone] documented as of this encounter Goals Goal [...] documented as of this encounter Visit Diagnoses Diagnosis Alcohol use disorder- Primary documented in this encounter Additional Health Concerns Assessment Noted Time PHQ-9 Depression Total Score: 0 07/18/19 25 1:26 PM EDT documented as of this encounter Care Teams Special Day Class Teacher Relationship Specialty Start Date End Date Name, MD Rivera [address] [place] [address] PCP - General Family Medicine 06/09/21 documented as of this encounter
--- NOTE | 2024-12-31 13:15 | A.OFFVIS_ITS ---
Intake Visit Reasons: Elevated PSA 23.19 Intake Note: Patient presents today for a follow-up on elevated PSA * 07/22 PSA:23.19 Urology Meds- None Allergies to Antibiotic- No Known Allergies Blood Thinner- None Smog Technician Required: No Accompanied by: Self / Same As Patient Allergies No Known Allergies (No Known Allergies*) Allergy (Verified 12/31/24 13:20) Medication List - Last Reconciled 12/31/24 by Juan Carlos Mcgregor MD amlodipine 10 mg PO DAILY finasteride (Proscar) 5 mg PO DAILY metoprolol succinate ER 25 mg PO DAILY valsartan 40 mg PO DAILY 30 days HPI Comments Details: 12/31/24-- History of Present Illness The patient is a 69-year-old male presenting with elevated prostate-specific antigen (PSA) levels. He has a history of elevated PSA levels, which have increased since the last visit. He declined discussion regarding prostate biopsy. He states he previously underwent a painful biopsy with significant bleeding a few years back at a different urology practice. The patient has been advised to undergo another biopsy under anesthesia to alleviate discomfort and ensure accurate diagnosis. He expressed concerns about the procedure but was reassured about the lack of pain with anesthesia. He is agreeable for biopsy after the holidays. He was prescribed dutasteride which he is no longer taking due to having a reasonable of medications and missing his last scheduled visit. We will start Proscar 5 mg daily. The patient also reports a history of alcohol use disorder and has been attending a program to manage this condition. He attends meetings regularly and has noted improvement in his lifestyle and well-being. Results - Elevated prostate-specific antigen (PSA) levels- 07/22/34--23.19 Plan 1. Elevated Prostate-Specific Antigen (Psa) Levels - Schedule prostate biopsy under anesthesia to ensure patient comfort and obtain accurate diagnosis. - Prescribe antibiotics before and after the biopsy to prevent infection. - proscar 5 mg daily 2. Alcohol Use Disorder - Continue attending support meetings to maintain sobriety. 06/21/23--Angel is a 68-year-old male who is being evaluated due to elevated PSA. He was initially evaluated on 03/22/2023 for elevated PSA, of 6.93 on 01/15/2023. He does have some urinary symptoms of hesitancy. He is here in follow-up with repeat PSA and renal ultrasound. Repeat PSA, 06/14/2023 is 6.63. Renal/bladder ultrasound-05/03/23- kidneys WNL-heterogeneous prostate, estimated prostate volume 112 mL. Bladder wall thickening, acceptable PVR. The patient declines prostate biopsy. Will start dutesteride and repeat PSA in 4 months, consider office cystoscopy. 03/22/23--Angel who is here for evaluation for elevated PSA. The patient denies family history of prostate cancer. Denies history of nicotine use. I have discussed that elevated PSA may indicate changes in the prostate including benign enlargement, cancer and an inflammatory condition. I have discussed doing a biopsy has risks and that management in early detection of prostate cancer may include active surveillance. Evaluation: Urinalysis-leukocytes negative, blood negative; Post Void Residual: 27 mL Prostate Exam: Patient declined exam today. Plan: Discussed repeat PSA. If remains elevated discussed plan for prostate biopsy. Ultrasound retroperitoneum, evaluate size of prostate by ultrasound Labs: 01/15/23--PSA---6.93 PFSH Medical History Anxiety High cholesterol Elevated PSA Essential hypertension Surgical History History of lung surgery Family History Brother Diabetes Social History Alcohol intake: current Alcohol intake frequency: a few times a week Alcohol type: beer Patient Tobacco Use Status: Never used Tobacco Substance Use Type: Marijuana Review of Systems Const All systems reviewed & are unremarkable except as noted in HPI and below Reports no additional complaints Eyes Reports no additional complaints ENT Reports no additional complaints Card Reports no additional complaints Resp Reports no additional complaints GI Reports no additional complaints Reports as per HPI Musc Reports no additional complaints Skin/Breast Reports system reviewed and no additional complaints, except as documented Neuro Reports no additional complaints Psych Reports no additional complaints Endo Reports no additional complaints Jerel/Lymph Reports no additional complaints Aller/Immun Reports no additional complaints Assessment & Plan Assessment & Plan (1) BPH with elevated PSA: Code(s): N40.0 - Benign prostatic hyperplasia without lower urinary tract symptoms; R97.20 - Elevated prostate specific antigen [PSA] Category: Medical (2) Elevated PSA: Code(s): R97.20 - Elevated prostate specific antigen [PSA] Category: Medical Plan Plan 1. Elevated Prostate-Specific Antigen (Psa) Levels - Schedule prostate biopsy under anesthesia to ensure patient comfort and obtain accurate diagnosis. - Prescribe antibiotics before and after the biopsy to prevent infection. - proscar 5 mg daily 2. Alcohol Use Disorder - Continue attending support meetings to maintain sobriety. Medications: New finasteride (Proscar) 5 mg PO DAILY 90 tabs 3RF Discontinued dutasteride Discontinued Reason: Doctor's Order 0.5 mg PO DAILY 90 caps 3RF Patient Instructions: The patient had an opportunity to ask questions regarding treatment plan. The patient expressed understanding and agreement with the above treatment plan. The patient is aware they should contact our office by phone for worsening of their current condition or the appearance of new symptoms. Compliance is encouraged with any medications and followup testing that is ordered. It is a privilege to be allowed the opportunity to participate in the urologic care of your patient. If you have any questions or concerns regarding treatment for the above conditions please do not hesitate to contact me. The office telephone contact is [phone]. This note is constructed in part using voice recognition software. While every effort has been made to ensure accuracy health workers errors may have been included. Yours sincerely, Juan Carlos Mcgregor MD Scribe Plan - Not visible on output: Patient was informed and verbally consented to the use of an ambient scribe for clinic note documentation during this visit. Coding Level of Care Code Est Pt Level 4 (00877) Diagnoses BPH with elevated PSA N40.0; R97.20 Elevated PSA R97.20
--- OUTSIDE RECORDS SUMMARY | 2024-12-31 15:58 | XMS_ITS | Encounter Summary ---
Author Organization [employer] Address [address] [facility] [address] [place] [address] Care Team Providers Care Statistical Reporting Analyst Name Role Phone Name, Rivera BAKER Primary Care Provider [phone] Reason for Visit * Reason Onset Date Comments returning 05/25/2022 Encounter Details Date Type Department Care Team (Late st Contact Info) Description 05/25/2022 Telephone [facility] MED[facility]INE [address] [place] [phone] Name, MD Rivera [address] [place] [phone] returning Social History Tobacco Use Types Packs/Day [...] states he received a call from us. Conventional Mortgage Underwriter does not see any message regarding at call. Please contact pt at [phone] Emirati speaker documented in this encounter Plan of Treatment Upcoming Encounters Date Type Department Care Team (Late st Contact Info) Description 01/08/2025 9:15 AM EST Office Visit [facility] [address] [place] [phone] Name, MD Rivera [address] [place] [address] documented as of this encounter Visit Diagnoses Not on filedocumented in this encounter Care Teams Statistical Reporting Analyst Relationship Specialty Start Date End Date Name, MD Rivera [address] [place] [address] PCP - General Family Medicine 06/09/21 documented as of this encounter
--- OUTSIDE RECORDS SUMMARY | 2024-12-31 15:58 | XMS_ITS | Clinical Summary ---
Author Organization [employer] Address [address] [facility] 7t [place] [address] Care Team Providers Care Video Production Specialist Name Role Phone Name, Rivera BAKER Primary Care Provider [phone] Allergies No known active allergies Medications * This document contains information received from the source organization and may not represent a complete record from that organization. polyvinyl alcohol (Liquifilm Tears) 1.4 % ophthalmic solution PLACE 1 DROP IN EACH EYE TWICE DAILY DIRECTED 3 Active valsartan-hydro CHLOROthiazide (Diovan HCT) 80-12.5 MG tablet Take 1 tablet by mouth Once per day. 30 tablet 11 5 10/13/19 26 Active carvedilol (Coreg) 6.25 MG tablet Take 1 tablet (6.25 mg) by mouth with breakfast and with evening meal. 60 tablet 11 5 10/13/19 26 Active mometasone (Elocon) 0.1 % ointment Apply topically Once per day. 45 g 2 5 10/13/19 26 Active Active Problems Problem Noted Date Diagnosed Date [...] right foot limited to breakdown of skin (CMS/HCC) 07/16/2024 HLD (hyperlipidemia) 07/16/2024 Positive colorectal cancer [...] organization. Date Type Department Care Team Description 12/30/2024 9:00 AM EST Office Visit [address] [address] Dominick Calderón MD Alcohol use disorder (Primary Dx) 12/30/2024 Travel 12/28/2024 Patient Outreach [address] [address] Beck Guzman [facility] 12/25/2024 Patient Outreach [address] [address] Beck Guzman [facility] 12/24/2024 Patient Outreach [address] [address] Jamie Fair [facility] 12/23/2024 9:00 AM EDT Office Visit [address] [address] Dominick Calderón MD Alcohol use disorder (Primary Dx) 12/23/2024 Travel 12/21/2024 Patient Outreach [address] [address] Benja Juarez [facility] 12/18/2024 Patient Outreach [address] [address] Jamie Fair [facility] 12/17/2024 Patient Outreach [address] [place] [address] Beck Guzman [facility] 12/16/2024 9:00 AM EDT Office Visit [facility] [address] [place] [address] Dominick Calderón MD Alcohol use disorder (Primary Dx) 12/16/2024 Travel 12/15/2024 Patient Outreach [facility] [address] [place] [address] Aidan Villela [facility] 12/14/2024 Patient Outreach [facility] [address] [place] [address] Beck Guzman [facility] 12/11/2024 Patient Outreach [facility] [address] [place] [address] Aidan V[facility] 12/10/2024 Patient Outreach [address] [address] Aidan V[facility] 12/09/2024 9:00 AM EDT Office Visit [facility] [address] [place] [address] Dominick Calderón MD Alcohol use disorder (Primary Dx) 12/09/2024 Travel 12/07/2024 Patient Outreach [facility] [address] [place] [address] Beck Guzman [facility] 12/03/2024 Patient Outreach [address] [address] Jamie Fair [facility] 12/02/2024 9:00 AM EDT Office Visit [facility] [address] [place] [address] Dominick Calderón MD Alcohol use disorder (Primary Dx) 12/02/2024 Travel 12/01/2024 Patient Outreach [facility] [address] [place] [address] Aidan [facility] 11/30/2024 Patient Outreach [address] [address] Benja Juarez [facility] 11/25/2024 9:00 AM EDT Office Visit [facility] [address] [place] [address] Dominick Calderón MD Alcohol use disorder (Primary Dx) 11/25/2024 Travel 11/24/2024 Patient Outreach [facility] [address] [facility] [place] [address] Aidan V[facility] 11/23/2024 Patient Outreach [facility] [address] [facility] [place] [address] Beck Guzman [facility] 11/20/2024 Telephone [facility] [place] [address] Danie Moses RN 11/19/2024 Patient Outreach [facility] [address] [place] [address] Jamie Fair [facility] 11/18/2024 9:00 AM EDT Office Visit [address] [place] [address] Dominick Calderón MD Alcohol use disorder (Primary Dx) 11/18/2024 Travel 11/17/2024 Patient Outreach [facility] [address] [place] [address] Aidan V[facility] 11/16/2024 Patient Outreach [address] [address] Benja Juarez [facility] 11/11/2024 9:00 AM EDT Office Visit [address] [place] [address] Dominick Calderón MD Alcohol use disorder (Primary Dx) 11/11/2024 Travel 11/10/2024 Patient Outreach [facility] [address] [place] [address] Aidan V[facility] 11/09/2024 Patient Outreach [facility] [address] [place] [address] Beck Guzman [facility] 11/09/2024 Patient Outreach [facility] [address] [place] [address] Beck Guzman [facility] 11/04/2024 9:00 AM EDT Office Visit [address] [address] Dominick Calderón MD Alcohol use disorder (Primary Dx) 11/04/2024 Travel 11/03/2024 Patient Outreach [facility] [place] [address] Aidan V[facility] 11/02/2024 Patient Outreach [facility] [address] [place] [address] Beck Guzman [facility] 10/28/2024 9:00 AM EDT Office Visit [facility] [place] [address] Dominick Calderón MD Alcohol use disorder (Primary Dx) 10/28/2024 Travel 10/27/2024 Patient Outreach [facility] [address] [place] [address] Jamie Fair [facility] 10/26/2024 Orders Only GENERIC EXTERNAL DATA DEPARTMENT Provider, Generic External Data 10/22/2024 Patient Outreach [facility] [place] [address] Jamie Fair [facility] 10/20/2024 Patient Outreach [facility] [place] [address] Jamie Fair [facility] 10/19/2024 Patient Outreach [facility] [place] [address] Beck Guzman [facility] 10/15/2024 Patient Outreach [facility] [place] [address] Jamie Fair [facility] 10/13/2024 Telephone [facility] [place] [address] Rivera Lang MD 10/13/2024 Patient Outreach [facility] [place] [address] Aidan V[facility]la [facility] 10/12/2024 11:30 AM EDT Office Visit [facility] [place] [address] Rivera Lang MD Cardiomyopathy due to hypertension, 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); Hypertension, unspecified type; Elevated PSA; Rash 10/12/2024 Patient Outreach [facility] [place] [address] Beck Guzman 10/12/2024 Travel 10/09/2024 Telephone [facility] [address] [place] [address] Pascale Baugh [place] Chart Prep 10/08/2024 Patient Outreach [facility] [address] [place] [address] Jamei Fair [facility] 10/06/2024 Patient Outreach [address] [address] Aidan Villela [facility] 10/05/2024 Patient Outreach [facility] [address] [place] [address] Beck Guzman [facility] 10/01/2024 Patient Outreach [facility] [address] [place] [address] Jamie Fair [facility] 09/30/2024 9:00 AM EDT Office Visit [address] [address] Dominick Calderón MD Alcohol use disorder (Primary Dx) 09/30/2024 Travel from Last 3 Months Social History Tobacco [...] 9:15 AM EST Office Visit [facility] [address] [place] [address] Name, MD Rivera [address] [place] [address] Health Maintenance Due Date Last Done Comments CT Colonography 1957 Colonoscopy 1957 FIT 1957 Sigmoidoscopy 1955 Hepatitis C Screening 07/19/1975 DTaP/Tdap/Td Vaccines (1 - Tdap) 1976 Pneumococcal Vaccine: 50+ Years (1 of 1 - PCV) 07/19/2007 Zoster Vaccines (1 of 2) 07/19/2007 FOBT 02/06/2024 02/05/2023 COVID-19 Vaccine (2023- season) 2024 Influenza Vaccine (#1) 2024 Alcohol/Substance Use Screening [...] General On track( 025 1:53 PM EST) Arlene Singh, RN Increase coping skills to promote long-term recovery and improve ability to perform daily activities General No Arlene Naranjo, liquefaction and regasification helper Procedure Name Priority Date/Time Associated Diagnosis Comments DRUG MONITOR, PANEL 1, SCREEN, URINE Routine 10/26/2024 6:51 PM EDT ETHANOL Routine 10/26/2024 6:51 PM EDT BASIC METABOLIC PANEL Routine 10/26/2024 6:51 PM EDT HEPATIC FUNCTION PANEL Routine 10/26/2024 6:51 PM EDT CBC WITH AUTO DIFFERENTIAL Routine 10/26/2024 6:51 PM EDT LIPID PANEL, STANDARD Routine 07/22/2024 8:53 AM EDT Hypertension, unspecified type LAB COLOGUARD COLON CANCER SCREEN Routine 02/05/2023 12:01 AM EST Screen for colon cancer from Last 3 Months or Most Recently Relevant to Health Maintenance Results * Ethanol (10/26/2024 6:51 PM EDT) ETHANOL (MG/DL) IN SER/PLAS 232 mg/dL [facility] Comment:Serum/plasma ethanol results are to be used formedical/treatment purposes only. 10/26/2024 6:51 PM EDT 10/26/2024 6:55 PM EDT us Generic External Data Provider LAB BLOOD ORDERAB LES Final Result [facility] [address] [place] [phone] * (ABNORMAL) Drug Monitoring, Panel 1, Screen, Urine (10/26/2024 6:51 PM EDT) Opiate Screen Urine Not Detected Not Detect [facility] Comment:Opiate cut-off is 30 0 ng/mL.Positive results are unconfirmed and should not be used fornon-medical purposes. Barbiturates, Urine Not Detected Not Detect [facility] Comment:Barbiturate cut-off is 200 ng/mL.Positive results are unconfirmed and should not be used fornon-medical purposes. Phencyclidine Screen Urine Not Detected Not Detect [facility] Comment:Phencyclidine cut-of f is 25 ng/mL.Positive results are unconfirmed and should not be used fornon-medical purposes. Amphetamine Screen Urine Not Detected Not Detect [facility] Comment:Amphetamine cut-off is 1000 ng/mL.Positive results are unconfirmed and should not be used fornon-medical purposes. Benzodiazepines Screen Urine Not Detected Not Detect [facility] Comment:Benzodiazepine cut-o ff is 200 ng/mL.Positive results are unconfirmed and should not be used fornon-medical purposes. Cocaine Screen Urine Not Detected Not Detect [facility] Comment:Cocaine cut-off is 3 00 ng/mL.Positive results are unconfirmed and should not be used fornon-medical purposes. Cannabinoid Screen Urine POSITIVE(A) Not Detect [facility] Comment:Cannabinoid cut-off is 50 ng/mL.Positive results are unconfirmed and should not be used fornon-medical purposes. Methadone Screen, Urine Not Detected Not Detect ng/mL [facility] Comment:Methadone cut-off is 300 ng/mL.Positive results are unconfirmed and should not be used fornon-medical purposes. FENTANYL URINE Not Detected Not Detect [facility] Comment:Fentanyl cut-off is 1 ng/mL.Positive results are unconfirmed and should not be used fornon-medical purposes. Oxycodone Urine Screen Not Detected Not Detect ng/mL [facility] Comment:Oxycodone cut-off is 100 ng/mL.Positive results are unconfirmed and should not be used fornon-medical purposes. Buprenorphine Screen Not Detected Not Detect ng/mL [facility] Comment:Buprenorphine cut-of f is 5 ng/mL.Positive results are unconfirmed and should not be used fornon-medical purposes. 10/26/2024 6:51 PM EDT 10/26/2024 6:55 PM EDT us Generic External Data Provider LAB URINE ORDERAB LES Final Result [facility] [address] [place] [phone] * (ABNORMAL) CBC auto differential (10/26/2024 6:51 PM EDT) White Blood Count 5.2 4.8 - 10.8 X10*3/uL [facility] Red Blood Count 5.75 4.60 - 5.80 X10*6/uL [facility] Hemoglobin 16.9 14.0 - 18.0 g/dl [facility] Hematocrit 47.7 42.0 - 52.0 % [facility] Mean Corpuscular Volume 83.0 80.0 - 98.0 fL [facility] Mean Corpuscular Hemoglobin 29.4 27.0 - 33.0 pg [facility] Mean Corpuscular HGB Conc 35.4 31.0 - 36.0 g/dl [facility] Red Cell Distribution Width 13.6 11.0 - 16.0 % [facility] Platelet Count 307 160 - 400 X10*3/uL [facility] Mean Platelet Volume 10.3 9.4 - 12.4 fL [facility] Neutrophils Percent Auto 75.2(H) 45 - 73 % [facility] Imm Gran Pct Auto 0.2 0.0 - 0.4 % [facility] Lymphocytes Percent Auto 21.9 20 - 40 % [facility] Monocytes Percent Auto 2.3 2 - 11 % [facility] Eosinophils Percent Auto 0.0 0 - 4 % [facility] Basophils Percent Auto 0.4 0 - 2 % [facility] NRBC Pct Auto 0.0 0.0 - 0.2 /100WBC [facility] Neutrophils Absolute Auto 3.9 2.0 - 8.3 x10*3/uL [facility] Imm Gran Abs Auto 0.01 0.00 - 0.03 X10*3/uL [facility] Lymphocytes Absolute Auto 1.1(L) 1.2 - 4.9 X10*3/uL [facility] Monocytes Absolute Auto 0.1 0.1 - 1.2 X10*3/uL [facility] Eosinophils Absolute Auto 0.0 0.0 - 0.4 X10*3/uL [facility] Basophils Absolute Auto 0.0 0.0 - 0.2 X10*3/uL [facility] NRBC Abs Auto 0.000 0.0 - 0.012 X10*3/uL [facility] 10/26/2024 6:51 PM EDT 10/26/2024 6:55 PM EDT Generic External Data Provider LAB BLOOD ORDERAB LES Final Result Performing Organization Address [facility] [address] [facility] Co de Phone Number [facility] [address] [place] [phone] * (ABNORMAL) Hepatic Function Panel (10/26/2024 6:51 PM EDT) Bilirubin, Total 0.4 0.0 - 1.0 mg/dL [facility] Bilirubin, Direct 0.1 0.0 - 0.5 mg/dL [facility] Aspartate Amino Transferase 41(H) 5 - 37 U/L [facility] Comment:Slight Hemolysis.Int erpret result with caution. Alanine Aminotransferase 24 0 - 40 U/L [facility] Total Protein 8.6(H) 6.5 - 8.0 g/dL [facility] Albumin Level 5.1(H) 3.5 - 5.0 g/dL [facility] Alkaline Phosphatase 84 39 - 117 U/L [facility] 10/26/2024 6:51 PM EDT 10/26/2024 6:55 PM EDT Generic External Data Provider LAB BLOOD ORDERAB LES Final Result Performing Organization Address [facility] [address]/[facility] Co de Phone Number [facility] [address] [place] [phone] * (ABNORMAL) Basic Metabolic Panel (10/26/2024 6:51 PM EDT) Sodium 144 135 - 145 mmol/L [facility] Potassium 4.0 3.3 - 5.1 mmol/L [facility] Comment:Slight Hemolysis.Int erpret result with caution. Chloride 111(H) 96 - 108 mmol/L [facility] Carbon Dioxide 18(L) 22 - 29 mmol/L [facility] Anion Gap 19 12 - 20 [facility] Urea Nitrogen (BUN) 8(L) 9 - 16 mg/dL [facility] Creatinine, Serum 0.81 0.5 - 1.4 mg/dL [facility] Creatinine Clr Calc Pharmacy 97.6 [facility] Comment:eGFR (calculated fro m the MDRD study equation) and eCrCl(calculated from the Cockcroft-Gault equation) are based ondifferent parameters and may not yield comparable results.If eCrCl result is absurd, please check patient'sheight/weight. Estimated Glomerular Filt Rate >60 [facility] Comment:Chronic Kidney Disea se: Estimated GFR < 60 mL/min/[id number] Kidney Disease: Estimated GFR < 15 mL/min/1.73m2 Glucose 103 60 - 115 mg/dL [facility] Calcium 9.6 8.4 - 10.2 mg/dL [facility] 10/26/2024 6:51 PM EDT 10/26/2024 6:55 PM EDT us Generic External Data Provider LAB BLOOD ORDERAB LES Final Result [facility] [address] [place], [place] [phone] * (ABNORMAL) Lipid Panel, Standard (07/22/2024 8:53 AM EDT) Triglycerides 131 <150 mg/dL [facility] Comment:Desirable Triglyceri de: less than 150 mg/dLBorderline High Triglyceride 150-199 mg/dLHigh Triglyceride: 200-499 mg/dLVery High Triglyceride: greater than or equal to 5OO mg/dL Cholesterol 222(H) <200 mg/dL [facility] Comment:Desirable Cholestero l: less than 200 mg/dLBorderline High Cholesterol: 200-239 mg/dLHigh Cholesterol: greater than 239 mg/dL LDL Cholesterol Calculated 146(H) <100 mg/dL [facility] Comment:Desirable LDL: less than 100 mg/dLNear Optimal/Above Optimal LDL: 110- 129 mg/dLBorderline High LDL: 130-159 mg/dLHigh LDL: 160-189 mg/dLVery High LDL: greater than or equal to 190 mg/dL HDL Cholesterol 50 >40 mg/dL [facility] Comment:Desirable HDL: great er than 40 mg/dL Note: This HDL assay may give artificially low results in patients with liver disease. Blood Venous blood specimen / Unknown 07/22/2024 8:53 AM EDT 07/22/2024 11:23 AM EDT us Rivera Lang MD LAB BLOOD ORDERABLES Final Resul t [facility] [address] [place] [phone] * (ABNORMAL) Cologuard?? colon cancer screening (02/05/2023 12:01 AM EST) Cologuard Result Positive( A) Negative 02/12/2023 8:32 PM EST [facility] (CLIA #:[id number]) Comment: POSITIVE TEST RESULT. A positive Cologuard [...] screened with both Cologuard and colonoscopy. (Efren Riggins et al, N Engl J Med 2014;370(14):0492-9541.) Cologuard may produce a false negative or false positive result (no colorectal cancer or precancerous polyp present at colonoscopy follow up). A negative Cologuard test result does not guarantee the absence of CRC or advanced adenoma (pre-cancer). The current Cologuard screening interval is every 3 years. ([employer] [employer] and U.S. Multi-Society Task Force). Cologuard performance data in a 10,000 patient pivotal study using colonoscopy as the reference method can be accessed at the following location: www.[employer]/results. Additional description of the Cologuard test process, warnings and precautions can be found at www.cologuard.com. Stool specimen (specimen) 02/05/2023 12:01 AM EST 02/06/2023 8:29 PM EST us Rivera Lang MD LAB MOLECULAR DIAGNOSTICS ORDERA BLES Final Result [facility] (CLIA #:[id number]) [address] [place] [address], from Last 3 Months or Most Recently Relevant to Health Maintenance Insurance [facility] STANDARD [facility] MEDICARE ADVANTAGE Care Teams Video Production Specialist Relationship Specialty Start Date End Date Name, MD Rivera [address] [place] [address] PCP - General Family Medicine 06/09/21
--- OUTSIDE RECORDS SUMMARY | 2024-12-31 15:58 | XMS_ITS | Encounter Summary ---
Author Organization [employer] Address [address] [facility] 7t [place] [address] Care Team Providers Care Customer Response Representative Name Role Phone Name, Rivera BAKER Primary Care Provider [phone] Encounter Details Date Type Department Care Team (Latest Contact Info) Description 12/30/2024 Travel Social History Tobacco Use Types Packs/Day Years [...] AM EDT documented as of this encounter Plan of Treatment Upcoming Encounters Date Type Department Care Team (Late st Contact Info) Description 01/08/2025 9:15 AM EST Office Visit [facility] [address] [place] [address] Name, MD Rivera [address] [place] [address] documented as of this encounter Goals Goal [...] documented as of this encounter Care Teams Customer Response Representative Relationship Specialty Start Date End Date NameRivera MD [address] [place] [address] PCP - General Family Medicine 06/09/21 documented as of this encounter
--- OUTSIDE RECORDS SUMMARY | 2024-12-31 15:58 | XMS_ITS | Encounter Summary ---
Author Organization [employer] Address [address] [facility] [address] [place] [address] Care Team Providers Care City Comptroller Name Role Phone Name, Rivera BAKER Primary Care Provider [phone] Reason for Visit * Reason Comments [facility] Encounter Details Date Type Department Care Team ([facility] st Contact Info) Description 12/28/2024 Patient Outreach [facility] [address] [place], [place] [phone] Beck Guzman [facility] Social History Tobacco Use Types [...] is your housing situation today? I have jigarreva moe 07/17/[address] you [...] as of this encounter Progress Notes * Beck Guzman - 12/28/2024 3:23 PM EST I met with Angel today. Setting: in person at [facility] Recovery Wellness Goals worked on: Physical Health/Mental Health Social Stability Spiritual Wellness Action taken/next steps: Attended recovery support group Contingency management Additional comments: Beck Guzman documented in this encounter Plan of Treatment Upcoming Encounters Date Type Department Care Team (Late st Contact Info) Description 01/08/2025 9:15 AM EST Office Visit [facility] [address] [place] [phone] NameRivera MD [address] [place] [address] documented as of this encounter Goals Goal [...] documented as of this encounter Care Teams City Comptroller Relationship Specialty Start Date End Date NameRivera MD [address] [place] [phone] PCP - General Family Medicine 06/09/21 documented as of this encounter
== END 2024-12-31 14:00 | disposition home or self-care (01) ==
PROVIDERS: PCP Internal Medicine Geriatric Medicine; Visit Provider Urology
DX: N40.0 Benign prostatic hyperplasia without lower urinary tract symptoms (principal); R97.20 Elevated prostate specific antigen [PSA]; Z13.9 Encounter for screening, unspecified
CPT/HCPCS: 99214

== ENCOUNTER → 2024-12-31 13:04 | Outpatient (BNVA) | payer MEDICARE, SELFPAY | PROVIDERS: PCP Internal Medicine Geriatric Medicine; Visit Provider Urology | DX: N40.0 Benign prostatic hyperplasia without lower urinary tract symptoms (principal); R97.20 Elevated prostate specific antigen [PSA] | CPT/HCPCS: 81003; 99212 ==

== ENCOUNTER 2025-01-05 13:57 | Outpatient (AMB) | payer MEDICARE, MEDICAID, SELFPAY ==
[2025-01-05 14:11] VITALS: BP 142/82; PULSE 56; O2SAT 98; BMI 21.8
--- NOTE | 2025-01-05 14:11 | A.OFFVIS_ITS ---
Vital Signs 01/05/25 14:11 Height 6 ft 2 in Weight 170 lb BMI 21.8 BP 142/82 H Blood Pressure Location Rt brachial Position Sitting Pulse 56 Pulse Source Pulse Oximeter Pulse Oximetry (%) 98 Oxygen Delivery Method Room Air Intake Visit Reasons: [place] screening (+ cologuard) Intake Note: New pt for recall colo screening w/ + cologuard. CC; Pt denies any GI sx or concerns at this time. Last colo ~ 17 years ago. Grease Renderer Required: No Accompanied by: Self / Same As Patient Allergies No Known Allergies (No Known Allergies*) Allergy (Verified 12/31/24 13:20) HPI HPI [place] screening (+ cologuard): Details: 68-year-old male here for preprocedural meeting to discuss a screening colonoscopy. He is referred by [facility] . PMX Cardiomyopathy/left ventricular hypertrophy-EF 40-45% Hypertension High cholesterol Positive Cologuard screening Chronic low back pain [place] AAA BPH * SURGICAL HISTORY Lungs surgery s/p fx of ribs 1987 * ALLERGIES: NKDA * [employer] LABS: Laboratory Tests 10/26/24 18:51 WBC 5.2 Hgb 16.9 Hct 47.7 Plt Count 307 Estimated GFR > 60 Total Bilirubin 0.4 Direct Bilirubin 0.1 AST 41 H ALT 24 Alkaline Phosphatase 84 TODAY'S VISIT He [place] [facility] [place] was told [place] was alright. In dale interim he had a positive Cologuard. No bowel or upper GI problems Cardiomyopathy is well controlled and no resp problems No ID problems. Naive to anes and sed There is no known FHX crc or polyps. [facility] Medical History Anxiety High cholesterol Elevated PSA Essential hypertension Surgical History H/O colonoscopy History of lung surgery Family History Brother Diabetes Social History Alcohol intake: current Alcohol intake frequency: a few times a week Alcohol type: beer Patient Tobacco Use Status: Never used Tobacco Substance Use Type: Marijuana Review of Systems Const Denies fatigue, Denies fever(s), Denies night sweats, Denies poor appetite and Denies weight loss Eyes Details: glasses Reports requires corrective lenses ENT Reports Normal hearing present, Denies dental pain, Denies dysphagia, Denies hearing loss, Denies mouth pain, Denies odynophagia, Denies throat swelling, Denies tongue swelling and Reports other (Dentition adequate) Card Reports no additional complaints Resp Reports no additional complaints GI Details: Denies abdominal pain, Denies melena, Denies bloating, Denies hematochezia, Denies constipation, Denies GI cramping, Denies dysphagia, Denies excessive flatus, Denies early satiety, Denies heartburn, Denies diarrhea, Denies nausea, Denies odynophagia, Denies vomiting and Denies hematemesis Skin/Breast Denies pruritus, Denies lesions, Denies rash and Denies jaundice Neuro Reports Normal hearing present and Denies Abnormal speech present Endo Denies fatigue Aller/Immun Denies throat swelling and Denies tongue swelling Physical Exam Vital Signs: Last Vital Signs Pulse 56 01/05/25 14:11 BP 142/82 H 01/05/25 14:11 Pulse Ox 98 01/05/25 14:11 Oxygen Delivery Method Room Air 01/05/25 14:11 BMI result Body Mass Index 21.8 Const General: cooperative, no acute distress, well developed and well groomed Nutritional Appearance: average body habitus and well nourished Orientation/consciousness: oriented to person, oriented to place and oriented to time Limitations: No language barrier HEENT Head: Yes normocephalic and Yes atraumatic Eyes General: appearance normal, both eyes and all related structures Pupils: Equal, round and reactive pupils present Neck Neck: Yes normal visual inspection and Yes no lymphadenopathy Thyroid: Thyroid normal Resp Effort & Inspection: normal respiratory effort and able to speak in complete sentences Auscultation: clear to auscultation bilaterally Cardio Rate: regular rate Rhythm: regular rhythm Heart sounds: Normal, physiologic split S2 sound present Peripheral pulses: radial pulses present and posterior tibial pulses present GI Inspection: No distended and No Abdominal panniculus present Palpation (GI): Soft to palpation, nontender, no guarding, not rigid and No hepatosplenomegaly present Percussion: Yes normal to percussion Auscultation: normal bowel sounds Rectal Exam - Male: Yes deferred Skin General skin exam: no rashes or lesions noted, turgor normal, skin not dry, no jaundice, No spider nevi and no striae Rashes: no rashes Nails: normal Neuro General: oriented to person, oriented to place and oriented to time Cranial nerves: Yes Equal, round and reactive pupils present and Yes Normal hearing present Speech: No Abnormal speech present Extrem General: Yes normal to inspection, No clubbing, No cyanosis and No edema Psych Appearance: grossly normal and well kempt Mental Status: mental status grossly normal Speech and movement: Normal speech and movement present Affect: normal affect Attitude: cooperative Thought process: Normal thought process present and not confabulating Thought content: Normal thought content present Insight: Good insight present (Psych) Judgement: Good judgement present (Psych) Assessment & Plan Assessment & Plan (1) Positive colorectal cancer screening using Cologuard test: Code(s): R19.5 - Other fecal abnormalities Category: Medical (2) Pre-op examination: Code(s): Z01.818 - Encounter for other preprocedural examination Category: Medical Plan He [place] [facility] [place] and he was told everything was alright. In [place] interim he had a positive Cologuard. No bowel or upper GI problems Cardiomyopathy is well controlled and no resp problems No ID problems. Naive to anes and sed There is no known FHX crc or polyps. Orders: Referrals GI Procedure Notification R19.5 - Other fecal abnormalities, Z01.818 - Encoun ter for other preprocedural examination Medications: New peg 3350-electrolytes 236-22.74-6.74 -5.86 gram (Golytely) until fecal effluent is clear; do not exceed a total volume of 2,000 mL 240 mL PO Q10M 4,000 mL 0RF 1 day Z12.11 - Encounter for screening for malignant neoplasm of colon bisacodyl (Dulcolax (bisacodyl)) 10 mg (2 x 5 mg) PO BEDTIME 4 tabs 0RF 2 days Coding Level of Care Code New Pt Level 3 (27321) Diagnoses Positive colorectal cancer screening using Cologuard test R19.5 Pre-op examination Z01.818
--- OUTSIDE RECORDS SUMMARY | 2025-01-05 15:32 | XMS_ITS | Patient Health Record ---
Author Organization [facility] [place] Address [address] [place] [address] Care Team Providers Care Handle Machine Operator Name Role Phone Name Rivera BAKER Primary Care Provider Patrice Betancourt Unavailable [phone] Allergies No Known Allergies Reason For Referral [...] Status Risk Notes Problem Acquired hallux valgus (32658333) Hallux valgus (acquired), right foot (M20.11) Active confirmed Problem Non-pressure chronic ulcer of other part of right foot limited to breakdown of skin (L97.511) Active confirmed Problem Acquired hammer toe of right foot ([id number] 105) Other hammer toe(s) (acquired), right foot (M20.41) Active confirmed Plan Of Treatment Pending Test Test Name Order Date X ray : Foot, right 3V 04/20/2022 Insurance Providers Payer Name Payer Address Payer Phone Subscriber Number Group Number Insured Name Patient Relationship to Insured Coverage Start Date Coverage End Date [employer] Medicare [id number] [address] [address] [place] [address] [id number] Angel Villela Self - patient is the insured Medical (General) History Medical History History ICD Code Arthritis Back,Hip,and Knee pain Cataracts Fibromyalgia Gout High blood pressure Surgical History Surgery Date(Month/Year)
--- OUTSIDE RECORDS SUMMARY | 2025-01-05 15:32 | XMS_ITS | Encounter Summary ---
Author Organization [employer] Address [address] [place] [address] Care Team Providers Care Soft Iron Inspector Name Role Phone Name, Rivera BAKER Primary Care Provider [phone] Reason for Visit * Reason Comments [facility] Recovery Supports Encounter Details Date Type Department Care Team ([facility] st Contact Info) Description 01/04/2025 Patient Outreach [facility] [address], [place] [phone] Beck Guzman Recovery Supports Social History Tobacco [...] encounter Progress Notes * Beck Guzman - 01/04/2025 3:37 PM EST I met with Angel today. Setting: in person at [facility] Recovery Wellness Goals worked on: Physical Health/Mental Health Social Stability Spiritual Wellness Action taken/next steps: Attended recovery support group Contingency management Additional comments: Beck Guzman documented in this encounter Plan of Treatment Upcoming Encounters Date Type Department Care Team (Late st Contact Info) Description 01/08/2025 9:15 AM EST Office Visit [facility] MED[facility]INE [address] [place] [phone] NameRivera MD [address] [place] [address] documented as of this encounter Goals Goal [...] documented as of this encounter Care Teams Soft Iron Inspector Relationship Specialty Start Date End Date NameRivera MD [address] [place] [phone] PCP - General Family Medicine 06/09/21 documented as of this encounter
--- OUTSIDE RECORDS SUMMARY | 2025-01-05 15:32 | XMS_ITS | Encounter Summary ---
Author Organization [employer] Address [address] [place] [address] Care Team Providers Care Billet Grinder Name Role Phone Name, Rivera BAKER Primary Care Provider [phone] Reason for Visit * Reason Comments RC Recovery Supports Encounter Details Date Type Department Care Team ([facility] st Contact Info) Description 01/01/2025 Patient Outreach [facility] MEDICINE [address] [place], [place] [phone] Beck Guzman Recovery Supports Social History Tobacco [...] encounter Progress Notes * Beck Guzman - 01/01/2025 2:19 PM EST I met with Angel today. Setting: in person at [facility] Recovery Wellness Goals worked on: Social Stability Action taken/next steps: Attended alcohol and drug free activity Additional comments: Beck Guzman documented in this encounter Plan of Treatment Upcoming Encounters Date Type Department Care Team (Late st Contact Info) Description 01/08/2025 9:15 AM EST Office Visit [facility] MEDICINE [address] [place] [phone] Name, MD Rivera [address] [place] [address] documented as of this encounter Goals Goal [...] documented as of this encounter Care Teams Billet Grinder Relationship Specialty Start Date End Date NameRivera MD [address] [place] [address] PCP - General Family Medicine 06/09/21 documented as of this encounter
--- OUTSIDE RECORDS SUMMARY | 2025-01-05 15:32 | XMS_ITS | Encounter Summary ---
Author Organization [facility] Address [address] [place] [address] Care Team Providers Care Fringe Knotter Name Role Phone Name, Rivera BAKER Primary Care Provider [phone] Reason for Visit * Reason Onset Date Comments returning 05/25/2022 Encounter Details Date Type Department Care Team (Late st Contact Info) Description 05/25/2022 Telephone [facility] MEDICINE [address] [place] [phone] NameRivera MD [address] [place] [phone] returning Social History Tobacco Use Types Packs/Day [...] states he received a call from us. Injection Molding Process Technician does not see any message regarding at call. Please contact pt at [phone] [place] Citizen speaker documented in this encounter Plan of Treatment Upcoming Encounters Date Type Department Care Team (Late st Contact Info) Description 01/08/2025 9:15 AM EST Office Visit [facility] [address] [place] [phone] Name, MD Rivera [address] [place] [address] documented as of this encounter Visit Diagnoses Not on filedocumented in this encounter Care Teams Fringe Knotter Relationship Specialty Start Date End Date Name, MD Rivera [address] [place] [address] PCP - General Family Medicine 06/09/21 documented as of this encounter
--- OUTSIDE RECORDS SUMMARY | 2025-01-05 15:32 | XMS_ITS | Clinical Summary ---
Author Organization [employer] Address [address] [place] [address] Care Team Providers Care Scientific Process Operator Name Role Phone Name, Rivera BAKER Primary Care Provider [phone] Allergies No known active allergies Medications * [...] organization. Date Type Department Care Team Description 01/04/2025 Patient Outreach [address] [address] [facility] 01/01/2025 Patient Outreach [address] [address] [facility] 12/30/2024 9:00 AM EST Office Visit [address] [address] Dominick Calderón MD Alcohol use disorder (Primary Dx) 12/30/2024 Travel 12/28/2024 Patient Outreach [address] [address] [facility] 12/25/2024 Patient Outreach [address] [address] [facility] 12/24/2024 Patient Outreach [address] [address] Jamie [facility] 12/23/2024 9:00 AM EDT Office Visit [address] [address] Dominick Calderón MD Alcohol use disorder (Primary Dx) 12/23/2024 Travel 12/21/2024 Patient Outreach [address] [place] [address] Benja Juarez RC [facility] 12/18/2024 Patient Outreach [facility] [address] [place] [address] Jamie [facility] 12/17/2024 Patient Outreach [address] [address] [facility] 12/16/2024 9:00 AM EDT Office Visit [address] [address] Dominick Calderón MD Alcohol use disorder (Primary Dx) 12/16/2024 Travel 12/15/2024 Patient Outreach [address] [address] Aidan V[facility]la [facility] 12/14/2024 Patient Outreach [address] [address] Beck [facility] 12/11/2024 Patient Outreach [address] [address] A[facility] 12/10/2024 Patient Outreach [address] [address] A[facility] 12/09/2024 9:00 AM EDT Office Visit [address] [address] Dominick Calderón MD Alcohol use disorder (Primary Dx) 12/09/2024 Travel 12/07/2024 Patient Outreach [address] [address] Beck [facility] 12/03/2024 Patient Outreach [address] [address] Jamie [facility] 12/02/2024 9:00 AM EDT Office Visit [address] [address] Dominick Calderón MD Alcohol use disorder (Primary Dx) 12/02/2024 Travel 12/01/2024 Patient Outreach [address] [address] Aidan V[facility] 11/30/2024 Patient Outreach [facility] [address] [facility] [place] [address] Benja Juarez [facility] 11/25/2024 9:00 AM EDT Office Visit [facility] [address] [facility] [place] [address] Dominick Calderón MD Alcohol use disorder (Primary Dx) 11/25/2024 Travel 11/24/2024 Patient Outreach [facility] [address] [facility] [place] [address] Aidan V[facility] 11/23/2024 Patient Outreach [facility] [address] [place] [address] Beck [facility] 11/20/2024 Telephone [facility] [address] [facility] [place] [address] Danie Moses RN 11/19/2024 Patient Outreach [facility] [address] [place] [address] [facility] 11/18/2024 9:00 AM EDT Office Visit [facility] [address] [facility] [place] [address] Dominick Calderón MD Alcohol use disorder (Primary Dx) 11/18/2024 Travel 11/17/2024 Patient Outreach [facility] [address] [facility] [place] [address] A[facility] V[facility] 11/16/2024 Patient Outreach [facility] [address] [place] [address] Benja Juarez [facility] 11/11/2024 9:00 AM EDT Office Visit [facility] [address] [facility] [place] [address] Dominick Calderón MD Alcohol use disorder (Primary Dx) 11/11/2024 Travel 11/10/2024 Patient Outreach [facility] [address] [facility] [place] [address] Aidan V[facility]la [facility] 11/09/2024 Patient Outreach [facility] [address] [place] [address] Beck [facility] 11/09/2024 Patient Outreach [facility] [address] [place] [address] Beck [facility] 11/04/2024 9:00 AM EDT Office Visit [facility] [address] [facility] [place] [address] Dominick Calderón MD Alcohol use disorder (Primary Dx) 11/04/2024 Travel 11/03/2024 Patient Outreach [facility] [address] [facility] [place] [address] Aidan V[facility] 11/02/2024 Patient Outreach [facility] [address] [facility] [place] [address] [facility] 10/28/2024 9:00 AM EDT Office Visit [facility] [place] [address] Doimnick Calderón MD Alcohol use disorder (Primary Dx) 10/28/2024 Travel 10/27/2024 Patient Outreach [facility] [place] [address] [facility] 10/26/2024 Orders Only GENERIC EXTERNAL DATA DEPARTMENT Provider, Generic External Data 10/22/2024 Patient Outreach [facility] [place] [address] Jamie [facility] 10/20/2024 Patient Outreach [facility] [address] Jamie [facility] 10/19/2024 Patient Outreach [facility] [place] [address] Beck [facility] 10/15/2024 Patient Outreach [facility] [place] [address] Jamie [facility] 10/13/2024 Telephone [facility] [place] [address] Rivera Lang MD 10/13/2024 Patient Outreach [facility] [place] [address] A[facility] 10/12/2024 11:30 AM EDT Office Visit [facility] [place] [address] Name, MD Rivera Cardiomyopathy due to hypertension, 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); Hypertension, unspecified type; Elevated PSA; Rash 10/12/2024 Patient Outreach [facility] [address] [place] [address] Beck Guzman 10/12/2024 Travel 10/09/[address] [address] Pascale Baugh [place] Chart Prep 10/08/2024 Patient Outreach [address] [address] Jamie [facility] 10/06/2024 Patient Outreach [address] [address] Aidan V[facility]la [facility] 10/05/2024 Patient Outreach [address] [address] Beck [facility] from Last 3 Months Social [...] Description 01/08/2025 9:15 AM EST Office Visit [facility] [address] [place] [address] Name, MD Rivera [address] [place] [address] Health Maintenance Due Date Last Done Comments CT Colonography 1957 Colonoscopy 1957 FIT 1957 Sigmoidoscopy 1957 Hepatitis C Screening 07/19/1975 DTaP/Tdap/Td Vaccines (1 - Tdap) 1976 Pneumococcal Vaccine: 50+ Years (1 of 1 - PCV) 07/19/2007 Zoster Vaccines (1 of 2) 07/19/2007 FOBT 02/06/2024 02/05/2023 COVID-19 Vaccine ( season) 2024 Influenza Vaccine (#1) 2024 Alcohol/Substance Use Screening 07/17/2025 07/17/2024 Depression Screening 07/17/2025 07/17/2024, 07/18/19 25 SDOH Screening 07/17/2025 07/17/2024 Tobacco Screening 10/12/2025 [...] perform daily activities General No Arlene Naranjo, admissions dean Procedure Name Priority Date/Time Associated Diagnosis Comments [...] EDT) ETHANOL (MG/DL) IN SER/PLAS 232 mg/dL [facility] Comment:Serum/plasma ethanol results are to be used formedical/treatment purposes only. 10/26/2024 6:51 PM EDT 10/26/2024 6:55 PM EDT us Generic External Data Provider LAB BLOOD ORDERAB LES Final Result [facility] [address] [place] [phone] * (ABNORMAL) Drug Monitoring, Panel 1, Screen, Urine (10/26/2024 6:51 PM EDT) Opiate Screen Urine Not Detected Not Detect [facility] Comment:Opiate cut-off is 30 0 ng/mL.Positive results are unconfirmed and should not be used fornon-medical purposes. Barbiturates, Urine Not Detected Not Detect [facility] Comment:Barbiturate cut-off is 200 ng/mL.Positive results are unconfirmed and should not be used fornon-medical purposes. Phencyclidine Screen Urine Not Detected Not Detect [facility] Comment:Phencyclidine cut-of f is 25 ng/mL.Positive results are unconfirmed and should not be used fornon-medical purposes. Amphetamine Screen Urine Not Detected Not Detect [facility] Comment:Amphetamine cut-off is 1000 ng/mL.Positive results are unconfirmed and should not be used fornon-medical purposes. Benzodiazepines Screen Urine Not Detected Not Detect [facility] Comment:Benzodiazepine cut-o ff is 200 ng/mL.Positive results are unconfirmed and should not be used fornon-medical purposes. Cocaine Screen Urine Not Detected Not Detect [facility] Comment:Cocaine cut-off is 3 00 ng/mL.Positive results are unconfirmed and should not be used fornon-medical purposes. Cannabinoid Screen Urine POSITIVE(A) Not Detect [facility] Comment:Cannabinoid cut-off is 50 ng/mL.Positive results are unconfirmed and should not be used fornon-medical purposes. Methadone Screen, Urine Not Detected Not Detect ng/mL [facility] Comment:Methadone cut-off is 300 ng/mL.Positive results are unconfirmed and should not be used fornon-medical purposes. FENTANYL URINE Not Detected Not Detect [facility] Comment:Fentanyl cut-off is 1 ng/mL.Positive results are unconfirmed and should not be used fornon-medical purposes. Oxycodone Urine Screen Not Detected Not Detect ng/mL [facility] Comment:Oxycodone cut-off is 100 ng/mL.Positive results are unconfirmed and should not be used fornon-medical purposes. Buprenorphine Screen Not Detected Not Detect ng/mL [facility] Comment:Buprenorphine cut-of f is 5 ng/mL.Positive results are unconfirmed and should not be used fornon-medical purposes. 10/26/2024 6:51 PM EDT 10/26/2024 6:55 PM EDT us Generic External Data Provider LAB URINE ORDERAB LES Final Result [facility] [address] [place] [address] [phone] * (ABNORMAL) CBC auto differential (10/26/2024 6:51 PM EDT) White Blood Count 5.2 4.8 - 10.8 X10*3/uL [facility] Red Blood Count 5.75 4.60 - 5.80 X10*6/uL [facility] Hemoglobin 16.9 14.0 - 18.0 g/dl [facility] Hematocrit 47.7 42.0 - 52.0 % [facility] Mean Corpuscular Volume 83.0 80.0 - 98.0 fL [facility] Mean Corpuscular Hemoglobin 29.4 27.0 - 33.0 pg [facility] Mean Corpuscular HGB Conc 35.4 31.0 - 36.0 g/dl [facility] Red Cell Distribution Width 13.6 11.0 - 16.0 % [facility] Platelet Count 307 160 - 400 X10*3/uL [facility] Mean Platelet Volume 10.3 9.4 - 12.4 fL [facility] Neutrophils Percent Auto 75.2(H) 45 - 73 % [facility] Imm Gran Pct Auto 0.2 0.0 - 0.4 % [facility] Lymphocytes Percent Auto 21.9 20 - 40 % [facility] Monocytes Percent Auto 2.3 2 - 11 % [facility] Eosinophils Percent Auto 0.0 0 - 4 % [facility] Basophils Percent Auto 0.4 0 - 2 % [facility] NRBC Pct Auto 0.0 0.0 - 0.2 /100WBC [facility] Neutrophils Absolute Auto 3.9 2.0 - 8.3 x10*3/uL [facility] Imm Gran Abs Auto 0.01 0.00 - 0.03 X10*3/uL [facility] Lymphocytes Absolute Auto 1.1(L) 1.2 - 4.9 X10*3/uL [facility] Monocytes Absolute Auto 0.1 0.1 - 1.2 X10*3/uL [facility] Eosinophils Absolute Auto 0.0 0.0 - 0.4 X10*3/uL [facility] Basophils Absolute Auto 0.0 0.0 - 0.2 X10*3/uL [facility] NRBC Abs Auto 0.000 0.0 - 0.012 X10*3/uL [facility] 10/26/2024 6:51 PM EDT 10/26/2024 6:55 PM EDT Generic External Data Provider LAB BLOOD ORDERAB LES Final Result Performing Organization Address [facility] de Phone Number [facility] [address] [place] [phone] * (ABNORMAL) Hepatic Function Panel (10/26/2024 6:51 PM EDT) Bilirubin, Total 0.4 0.0 - 1.0 mg/dL [facility] Bilirubin, Direct 0.1 0.0 - 0.5 mg/dL [facility] Aspartate Amino Transferase 41(H) 5 - 37 U/L [facility] Comment:Slight Hemolysis.Int erpret result with caution. Alanine Aminotransferase 24 0 - 40 U/L [facility] Total Protein 8.6(H) 6.5 - 8.0 g/dL [facility] Albumin Level 5.1(H) 3.5 - 5.0 g/dL [facility] Alkaline Phosphatase 84 39 - 117 U/L [facility] 10/26/2024 6:51 PM EDT 10/26/2024 6:55 PM EDT Generic External Data Provider LAB BLOOD ORDERAB LES Final Result Performing Organization Address [facility] Co de Phone Number [facility] [address] [place] [phone] * (ABNORMAL) Basic Metabolic Panel (10/26/2024 6:51 PM EDT) Sodium 144 135 - 145 mmol/L [facility] Potassium 4.0 3.3 - 5.1 mmol/L [facility] Comment:Slight Hemolysis.Int erpret result with caution. Chloride 111(H) 96 - 108 mmol/L [facility] Carbon Dioxide 18(L) 22 - 29 mmol/L [facility] Anion Gap 19 12 - 20 [facility] Urea Nitrogen (BUN) 8(L) 9 - 16 mg/dL [facility] Creatinine, Serum 0.81 0.5 - 1.4 mg/dL [facility] Creatinine Clr Calc Pharmacy 97.6 [facility] Comment:eGFR (calculated fro m the MDRD study equation) and eCrCl(calculated from the Cockcroft-Gault equation) are based ondifferent parameters and may not yield comparable results.If eCrCl result is absurd, please check patient'sheight/weight. Estimated Glomerular Filt Rate >60 [facility] Comment:Chronic Kidney Disea se: Estimated GFR < 60 mL/min/[id number] Kidney Disease: Estimated GFR < 15 mL/min/1.73m2 Glucose 103 60 - 115 mg/dL [facility] Calcium 9.6 8.4 - 10.2 mg/dL [facility] 10/26/2024 6:51 PM EDT 10/26/2024 6:55 PM EDT us Generic External Data Provider LAB BLOOD ORDERAB LES Final Result [facility] [address] [place] [phone] [phone] * (ABNORMAL) Lipid Panel, Standard (07/22/2024 8:53 AM EDT) Triglycerides 131 <150 mg/dL [facility] Comment:Desirable Triglyceri de: less than 150 mg/dLBorderline High Triglyceride 150-199 mg/dLHigh Triglyceride: 200-499 mg/dLVery High Triglyceride: greater than or equal to 5OO mg/dL Cholesterol 222(H) <200 mg/dL [facility] Comment:Desirable Cholestero l: less than 200 mg/dLBorderline High Cholesterol: 200-239 mg/dLHigh Cholesterol: greater than 239 mg/dL LDL Cholesterol Calculated 146(H) <100 mg/dL [facility] Comment:Desirable LDL: less than 100 mg/dLNear Optimal/Above Optimal LDL: 110- 129 mg/dLBorderline High LDL: 130-159 mg/dLHigh LDL: 160-189 mg/dLVery High LDL: greater than or equal to 190 mg/dL HDL Cholesterol 50 >40 mg/dL [facility] Comment:Desirable HDL: great er than 40 mg/dL Note: This HDL assay may give artificially low results in patients with liver disease. Blood Venous blood specimen / Unknown 07/22/2024 8:53 AM EDT 07/22/2024 11:23 AM EDT us Rivera Lang MD LAB BLOOD ORDERABLES Final Resul t [facility] [address] [place] [phone] * (ABNORMAL) Cologuard?? colon cancer screening (02/05/2023 12:01 AM EST) Cologuard Result Positive( A) Negative 02/12/2023 8:32 PM EST [facility] (CLIA #:[id number]) Comment: POSITIVE TEST RESULT. A positive Cologuard [...] (Efren Bishop al, N Engl J Med 2014;370(14):5221-5015.) Cologuard may produce a false negative or false positive result (no colorectal cancer or precancerous polyp present at colonoscopy follow up). A negative Cologuard test result does not guarantee the absence of CRC or advanced adenoma (pre-cancer). The current Cologuard screening interval is every 3 years. ([place] [employer] and U.S. Multi-Society Task Force). Cologuard performance data in a 10,000 patient pivotal study using colonoscopy as the reference method can be accessed at the following location: [email or web address]/results. Additional description of the Cologuard test process, warnings and precautions can be found at [email or web address]. Stool specimen (specimen) 02/05/2023 12:01 AM EST 02/06/2023 8:29 PM EST us Rivera Lang MD LAB MOLECULAR DIAGNOSTICS ORDERA LON Final Result [facility] (CLIA #:[id number]) [address] [place] [address], from Last 3 Months or Most Recently Relevant to Health Maintenance [place] [address] [place] [address] MEDICARE ADVANTAGE HMO [facility] MEDICARE ADVANTAGE Care Teams Scientific Process Operator Relationship Specialty Start Date End Date Name, MD Rivera [address] [place] [address] PCP - General Family Medicine 06/09/21
== END 2025-01-05 14:41 | disposition home or self-care (01) ==
LOC: HO.HGI 13:58
PROVIDERS: PCP Internal Medicine Geriatric Medicine; Visit Provider Nurse Practitioner
DX: R19.5 Other fecal abnormalities (principal); Z01.818 Encounter for other preprocedural examination; Z12.11 Encounter for screening for malignant neoplasm of colon
CPT/HCPCS: 99203

== ENCOUNTER → 2025-01-05 13:57 | Outpatient (BNVA) | payer MEDICARE, SELFPAY | PROVIDERS: PCP Internal Medicine Geriatric Medicine; Visit Provider Nurse Practitioner | DX: Z01.818 Encounter for other preprocedural examination (principal); R19.5 Other fecal abnormalities | CPT/HCPCS: 99202 ==